=== PATIENT | female | born 1955 | race Caucasian/White ===

== ENCOUNTER 2017-10-09 17:38 | Emergency (ER) | payer MEDICARE, BC ==
[~2017-10-09] VITALS: Ht 170.2 cm; Wt 100.2 kg
[~2017-10-09 17:38] MED LIST: Aspirin PO; BENZTROPINE MESY1 MG PO; CIPRODEX OTIC7.5 ML LEFT EAR; HYDROCODON-ACE1 EA12 PO; ONGLYZA5 MG PO; SPIRONOLACTONE1 GM PO; Z DILTIAZEM PO; Z LABETALOL HCL PO; Z RISPERDAL PO; Z TRAMADOL HCL PO; Z.0.DEPAKOTE250 MG PO; Z.0.PRAVACHOL40 MG PO
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
[2017-10-09] MEDS ORDERED: DILTIAZEM HCL 30 MG TAB PO STA (23:08)
[2017-10-09 23:58] VITALS: BP 157/105
== END 2017-10-10 00:04 | disposition home or self-care (01) ==
LOC: ER 17:38
DX: I10 Essential (primary) hypertension (principal); T46.1X6A Underdosing of calcium-channel blockers, initial encounter; T44.8X6A Underdosing of centrally-acting and adrenergic-neuron-blocking agents, initial encounter; Y92.019 Unspecified place in single-family (private) house as the place of occurrence of the external cause
CPT/HCPCS: 99283

== ENCOUNTER → 2018-09-24 | Outpatient (CLI) | payer MEDICARE, BC ==
--- NOTE | 2018-09-24 17:15 | Diagnostic Imaging Report ---
Radiographs of the right foot - 3 views HISTORY: Pain COMPARISON: None available. FINDINGS: Bones: No acute displaced fracture. Osseous alignment is within normal limits. Joints: Scattered degenerative changes are seen. Postsurgical changes are seen at the distal right first metatarsal. No osseous erosion. Soft tissues: The soft tissues appear unremarkable. IMPRESSION: Scattered degenerative changes are seen. Postsurgical changes are seen at the distal right first metatarsal. No osseous erosion. Signed by: Dr. Eddie Langford M.D. on 09/24/2018 5:12 PM
== END ==
LOC: RAD 16:31
DX: M79.671 Pain in right foot (principal)

== ENCOUNTER → 2019-02-04 | Outpatient (CLI) | payer MEDICARE, BC ==
--- NOTE | 2019-02-04 09:21 | Diagnostic Imaging Report ---
EXAMINATION: PA and lateral views of the chest. COMPARISON: None CLINICAL HISTORY: Predialysis screening DISCUSSION: The lungs are well-inflated. No focal airspace consolidation, pleural effusion, or pneumothorax. Tortuous thoracic aorta with otherwise normal heart size. No pulmonary edema. No acute osseous abnormality. IMPRESSION: No acute cardiopulmonary abnormalities. Signed by: Dr. Bhavin Rios M.D. on 02/04/2019 9:18 AM
== END ==
LOC: RAD 08:46
PROVIDERS: ATTEND Internal Medicine Nephrology
DX: Z49.01 Encounter for fitting and adjustment of extracorporeal dialysis catheter (principal)
CPT/HCPCS: 71046

== ENCOUNTER 2019-06-22 12:35 | Emergency (ER) | payer MEDICARE, BC ==
[~2019-06-22] VITALS: Ht 170.2 cm; Wt 100.2 kg
[2019-06-22] MEDS ORDERED: ALLOPURINOL100 MG PO (12:50)
[2019-06-22] MEDS ORDERED: BUPROPION HCL75 MG PO (12:50)
[2019-06-22] MEDS ORDERED: CALCITRIOL0.25 MCG PO (12:50)
--- NOTE | 2019-06-22 14:34 | NUR ---
Xray not done yet
--- NOTE | 2019-06-22 14:54 | Diagnostic Imaging Report ---
EXAMINATION: CHEST 2 VIEWS INDICATION: ^pulled out dialysis cath ^Y COMPARISON: Chest radiograph 02/04/2019 FINDINGS: PA and lateral views TUBES and LINES: None. LUNGS: Lungs are well inflated. Bilateral interstitial edema. No lobar consolidations. PLEURA: No pleural effusion or pneumothorax. HEART AND MEDIASTINUM: Stable mild enlargement of the cardiac silhouette. Mild calcifications of the aortic arch. BONES AND SOFT TISSUES: No acute osseous lesion. Soft tissues are unremarkable. UPPER ABDOMEN: No free air under the diaphragm. IMPRESSION: No visualized fragments of hemodialysis catheter in the right upper left or hemithorax. No pneumothorax. Bilateral interstitial edema. Signed by: Dr. Danae Arshad M.D. on 06/22/2019 2:51 PM
== END 2019-06-22 15:22 | disposition home or self-care (01) ==
LOC: ER 12:35
DX: T82.898A Other specified complication of vascular prosthetic devices, implants and grafts, initial encounter (principal); I12.0 Hypertensive chronic kidney disease with stage 5 chronic kidney disease or end stage renal disease; E11.22 Type 2 diabetes mellitus with diabetic chronic kidney disease; N18.6 End stage renal disease; Z99.2 Dependence on renal dialysis; Z96.652 Presence of left artificial knee joint
CPT/HCPCS: 71046; 99283

== ENCOUNTER 2020-07-14 12:21 | Inpatient (IN) | payer MEDICARE, BC ==
[~2020-07-14] VITALS: Ht 170.2 cm; Wt 82.1 kg
[~2020-07-14 12:21] MED LIST changes: +ALLOPURINOL100 MG PO; +BUPROPION HCL75 MG PO; +CALCITRIOL0.25 MCG PO
--- OUTSIDE RECORDS SUMMARY | 2020-07-14 12:53 | XMS REPORT | Continuity of Care Document ---
Author Author [facility] t Organization [facility] Address [address] [place] [address] Phone Unavailable Care Team Providers Care Medical Front Desk Coordinator Name Role Phone ZOEY BELLO MD PCP Festus GARCIA Attphys Unavailable Janes JACOBS MARTA Attphys Unavailable ZOEY BELLO Attphys Unavailable Payers Payer Name Policy Type Policy Number Effective Date Expiration Date Malvin Book[employer] [id number] 2015 00:00:[address] 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 Other senior care (current) drug therapy Active Diagnosis 04/04/2020 [facility] Diagnosis Active 2020-04-04 02:47:59 Jesus Michaud Allergies, Adverse Reactions, Alerts Allergy Name Allergy Type Status Severity Reaction(s) Onset Date Inacti ve Date Treating Clinician Comments Source Sulfur Sulfur Active anaphylaxis 2020-03-18 00:00:00 Jesus Michaud Dicyclomine HCl Dicyclomine HCl Active hives 2020-03-18 00:00:00 Jesus Michaud Penicillins DA Active U 2018-11-19 00:00:00 [facility] Sulfa (Sulfonamide Antibiotics) DA Active U 2018-11-19 00 :00:00 [facility] doxycycline DA Active U 2018-11-19 00:00:00 [facility] Penicillins DA Active U 2015-02-11 00:00:00 [facility] Sulfa (Sulfonamide Antibiotics) DA Active U 2015-02-11 00 :00:00 [facility] doxycycline DA Active U 2015-02-11 00:00:00 [facility] Doxycycline Allergy to Substance Active Moderate RASH 2015-02-02 00:00: 00 [facility] Penicillin Allergy to Substance Active Mild ITCHING 2010-04-06 00:00:00 [facility] Sulfa (Sulfonamide Antibiotics) Allergy to Substance Active Mild ITCHING 2010-04-06 00:00:00 [facility] Chlorpromazine Allergy to Substance Active Mild SAGGING OF JAW 2010-04-06 00:00:00 [facility] Medications Ordered Medication Name Filled Medication Name Start Date Stop Da te Current Medication? Ordering Clinician Indication Dosage Frequency Signature (SIG) Comments Components Source Risperidone 2020-04-04 02:47:59 Yes Tory Navarro 1/2 tablet [facility] Colace 2020-04-04 02:47:59 Yes Tory Navarro 1 capsule as needed [facility] Diltiazem HCl ER 2020-04-04 02:47:59 Yes Tory Poolean 1 tablet at the same time each day [facility] Allopurinol 2020-04-04 02:47:59 Yes Tory Poolean 1 tablet [facility] Humalog 2020-04-04 02:47:59 Yes Tory Navarro n ot defined [facility] Aspirin 2020-04-04 02:47:59 Yes Tory Poolean 1 tablet [facility] Pravastatin Sodium 2020-04-04 02:47:59 Yes Tory Poolean 1 tablet [facility] Acetaminophen 2020-04-04 02:47:59 Yes Tory Poolean 1 tablet as needed [facility] Labetalol HCl 2020-04-04 02:47:59 Yes Tory Palkman 1 tablet [facility] Depakote 2020-04-04 02:47:53 Yes Tory Navarro 1 tablet q am & 2 tablets q hs [facility] Onglyza 2020-04-04 02:47:53 Yes Tory Navarro n ot defined [facility] Benztropine Mesylate 2020-04-04 02:47:53 Yes Tory darden 1 tablet at bedtime [facility] Calcitriol 2020-04-04 02:47:53 Yes Torycarole Navarro 1 capsule [facility] BuPROPion HCl 2020-04-04 02:47:53 Yes Torycarole Poolean 1 tablet [facility] Aspirin 325 Mg Tab Aspirin 325 Mg Tab 2016-03-16 00:00:00 Yes Adithya Zhang Pa 325 Twice A Day [facility] Allopurinol 100 Mg Tablet Allopurinol 100 Mg Tablet Yes 100 Daily [facility] Benztropine Mesylate 1 Mg Tablet Benztropine Mesylate 1 Mg Tablet Yes Bedtime [facility] Bupropion Hcl 75 Mg Tablet Bupropion Hcl 75 Mg Tablet Yes 75 Daily [facility] Calcitriol 0.25 Mcg Capsule Calcitriol 0.25 Mcg Capsule Yes 1 Daily [facility] Diltiazem Hcl (Diltiazem 24HR Er) 240 Mg Tab.sr.24h Di ltiazem Hcl (Diltiazem 24HR Er) 240 Mg Tab.sr.24h Yes 1 Daily [facility] Divalproex Sodium (Depakote) 250 Mg Tablet. Divalpro ex Sodium (Depakote) 250 Mg Tablet. Yes 2 Daily [facility] Labetalol Hcl 100 Mg Tablet Labetalol Hcl 100 Mg Tablet Yes [address] [facility] Pravastatin Sodium (Pravachol) 40 Mg Tablet Pravastati n Sodium (Pravachol) 40 Mg Tablet Yes 1 Bedtime [facility] Risperidone (Risperdal) 3 Mg Tablet Risperidone (Risperdal) 3 Mg Tabl et Yes 1 Bedtime [facility] Saxagliptin Hcl (Onglyza) 5 Mg Tablet, Oral Saxaglip tin Hcl (Onglyza) 5 Mg Tablet, Oral 2019-06-22 00:00:[address] [facility] Ciprofloxacin Hcl (Ciprodex Otic Suspension*) 7.5 Ml D rpette, 4 Drop Left Ear Ciprofloxacin Hcl (Ciprodex Otic Suspension*) 7.5 Ml Drpette, 4 Drop Left Ear 2016-03-10 00:00:00 No 4 Tw[address] A Day [facility] Hydrocodone Bit/Acetaminophen (Hydrocodo n-Acetaminoph 7.5-325) 1 Each Tablet, Mg Oral Hydrocodone Bit/Acetaminophen (Hydrocodo n-Acetaminoph 7.5-325) 1 Each Tablet, Mg Oral 2016-03-10 00:00:00 No As Need ed for Pain [facility] Spironolactone, Micronized (Spironolactone) 1 Gm Powde r, 25 Mg Oral Spironolactone, Micronized (Spironolactone) 1 Gm Powder, 25 Mg Oral 2016-03-10 00:00:[address] No [address] [facility] Vital Signs Vital Name Observation Time Observation Value Comments Source Weight 2020-03-18 21:45:00 [facility] Weight 2020-02-18 21:45:00 [facility] Weight 2020-01-21 21:15:00 [facility] Weight 2019-12-26 22:00:00 [facility] Weight 2019-10-27 15:45:00 [facility] Height 2019-10-27 15:45:00 [facility] Heart Rate 2019-10-27 15:45:00 [facility] Diastolic (mm Hg) 2019-10-27 15:45:00 [facility] Systolic [facility] Hg) 2019-10-27 15:45:00 Lei rial Jaswant Procedures Procedure Date / Time Performed Performing Clinician [facility] e X-ray of chest, two views 2019-06-22 00:00:00 ARISTEO GARCIA [facility] X-ray of chest, two views 2019-02-04 00:00:[address] [facility] Encounters Start Date/Time End Date/Time En[facility] Ad[facility] ID Source 2019-06-23 08:32:51 Outpatient MHSE ZORAIDA [id number] [facility] 2020-03-18 16:45:00 2020-03-18 16:45:00 Outpatient SHUN MELTON MD [place] [id number] [facility] 2020-03-16 17:48:00 2020-03-16 17:48:00 Outpatient Shun Melton MD [place] [id number] [employer] 2020-03-16 17:46:00 2020-03-16 17:46:00 Outpatient Shun Melton MD PA Shun Melton MD PA [id number] [employer] 2020-03-16 17:43:00 2020-03-16 17:43:00 Outpatient Shun Melton MD PA Shun Melton MD PA [id number] [employer] 2020-03-16 14:44:00 2020-03-16 14:44:00 Outpatient Shun Melton MD PA [id number] [employer] 2020-02-18 16:45:00 2020-02-18 16:45:00 Outpatient SHUN MELTON MD PA [id number] [employer] 2020-01-21 16:15:00 2020-01-21 16:15:00 Outpatient SHUN MELTON MD PA [id number] [employer] 2019-12-26 17:00:00 2019-12-26 17:00:00 Outpatient SHUN MELTON MD PA [id number] [employer] 2019-11-26 10:45:00 2019-11-26 10:45:00 Outpatient SHUN MELTON MD [place] [id number] [employer] 2019-11-05 10:30:00 2019-11-05 10:30:00 Outpatient SHUN MELTON MD PA [id number] [employer] 2019-11-03 10:50:00 2019-11-03 10:50:00 Outpatient Shun Melton MD PA [id number] [employer] 2019-10-31 10:21:00 2019-10-31 10:21:00 Outpatient Shun Melton MD PA [id number] [employer] 2019-10-29 11:44:00 2019-10-29 11:44:00 Outpatient Shun WATTERS [id number] [employer] 2019-10-27 10:45:00 2019-10-27 10:45:00 Outpatient SHUN WATTERS [id number] [employer] 2019-09-10 08:13:00 2019-09-10 08:13:00 Outpatient MHSE ZORAIDA [id number] [facility] 2019-06-22 12:35:00 2019-06-22 15:22:00 Departed Emergency Room 1 ARISTEO GARCIA [facility] [id number] [facility] 2019-05-21 13:23:00 2019-05-21 13:23:00 Outpatient MHSE ZORAIDA [id number] [facility] 2019-02-04 08:46:00 2019-02-04 08:46:00 Registered Clinic 3 MARTA JACOBS [facility] [id number] [facility] 2018-09-24 16:31:00 2018-09-24 16:31:00 Registered Clinic 3 ZOEY BELLO [facility] [id number] [facility] 2017-10-09 17:38:00 2017-10-10 00:04:00 Departed Emergency Room [facility] [id number] [facility] 2017-06-23 16:11:00 2017-06-23 22:31:00 Departed Emergency Room ER ARISTEO GARCIA [facility] [id number] [facility] 2017-02-23 12:47:00 2017-02-23 12:47:00 Registered Clinic [facility] [id number] [facility] Results Test Description Test Time Test Comments Results Result Comments Source - NM MYOCRD SPECT R/S MULT 2019-09-30 08:07:00 FAX: Zoey Burch MD [phone] [place]: B St: [facility] FAX: Harjit George MD [phone] Name: GATO BEVERLY [facility] : 1955 Age/S: 63/F [address] [facility] Unit #: [id number] Loc: V.30[address] [place] [address] Phys: Harjit Michaud MD Acct: [id number] Dis Date: Status: ADM IN PHONE #: [phone] Exam Date: 09/25/2019 1230 FAX #: [phone] Reason: CAD,angina EXAMS: CPT CODE: [id number] NM MYOCRD SPECT R/S MULT 13650 HISTORY: CAD and angina. COMPARISON: None available. Location: [facility]. Stress test: 10.9 mCi of technetium 99m sestamibi for the resting portion and 30.7 mCi for the stress portion. 0.4 mg of Lexiscan administered. The left ventricular cavity is normal. The wall motion was normal. Ejection fraction is 73%. No reversible or fixed defects visible. IMPRESSION: No reversible or fixed defects. Ejection fraction of 73 %. at 0807 Reported and signed by: Hardik Knutson M.D. CC: Zoey Bello MD; Shola Michaud M.D. Technologist: Jason Ledezma RT(R)(N) Trnscrd Date/Time/By: 09/30/2019 (0807) : By: [email or web address] Orig Print D/T: S: 09/30/2019 (0810) PAGE 1 Signed Report RENAL FUNCTION PANEL 2019-09-30 07:54:00 Test Item SODIUM (test code = NA) 146 mmol/L 136-145 H POTASSIUM (test code = K) 4.8 mmol/L 3.5-5.1 N CHLORIDE (test code = CL) 114.0 mmol/L 98-107 H CARBON DIOXIDE (test code = CO2) 26.0 mmol/L 21-32 N ANION GAP (test code = GAP) 10.8 10-20 N GLUCOSE (test code = GLU) 123 mg/dL 74-106 H BLOOD UREA NITROGEN (test code = BUN) 92 mg/dL 7-18 H CREATININE (test code = CREAT) 4.00 mg/dL 0.55-1.02 H Note change in reference range due to change in reagent. ALBUMIN (test code = ALB) 3.0 g/dL 3.4-5.0 L CALCIUM (test code = CA) 9.6 mg/dL 8.5-10.1 N PHOSPHORUS (test code = PHOS) 5.3 mg/dL 2.5-4.9 H RENAL FUNCTION [id number] 07:49:00* Test Item Value Reference Range Interpretation Comments SODIUM (test code = NA) 146 mmol/L 136-145 H POTASSIUM (test code = K) 4.8 mmol/L 3.5-5.1 N CHLORIDE (test code = CL) 114.0 mmol/L 98-107 H CARBON DIOXIDE (test code = CO2) mmol/L 21-32 ANION GAP (test code = GAP) 10-20 GLUCOSE (test code = GLU) mg/dL 74-106 BLOOD UREA NITROGEN (test code = BUN) mg/dL 7-18 CREATININE (test code = CREAT) mg/dL 0.55-1.02 ALBUMIN (test code = ALB) g/dL 3.4-5.0 CALCIUM (test code = CA) mg/dL 8.5-10.1 PHOSPHORUS (test code = PHOS) mg/dL 2.5-4.9 CBC W/O [id number] 07:34:00* Test Item Value Reference Range Interpretation Comments WHITE BLOOD CELL (test code = WBC) K/mm3 4.5-12.5 RED BLOOD CELL (test code = RBC) mill/mm3 3.7-5.2 HEMOGLOBIN (test code = HGB) 11.6 gram/dL 11.5-15.5 N HEMATOCRIT (test code = HCT) 38.5 % 36.0-46.0 N MEAN CELL VOLUME (test code = MCV) fL 80-98 MEAN CELL HGB (test code = MCH) picogram 27.0-33.0 MEAN CELL HGB CONCETRATION (test code = MCHC) gram/dL 33.0-36. 0 RED CELL DISTRIBUTION WIDTH (test code = RDW) % 11.6-16. 2 PLATELET COUNT (test code = PLT) K/mm3 150-450 MEAN PLATELET VOLUME (test code = MPV) fL 6.7-11.0 CBC W/O [id number] 07:34:00* Test Item Value Reference Range Interpretation Comments WHITE BLOOD CELL (test code = WBC) 11.7 K/mm3 4.5-12.5 N RED BLOOD CELL (test code = RBC) 4.04 mill/mm3 3.7-5.2 N HEMOGLOBIN (test code = HGB) 11.6 gram/dL 11.5-15.5 N HEMATOCRIT (test code = HCT) 38.5 % 36.0-46.0 N MEAN CELL VOLUME (test code = MCV) 95.3 fL 80-98 N MEAN CELL HGB (test code = MCH) 28.7 picogram 27.0-33.0 N MEAN CELL HGB CONCETRATION (test code = MCHC) 30.1 gram/dL 33.0-36. 0 L RED CELL DISTRIBUTION WIDTH (test code = RDW) 15.5 % 11.6-16. 2 N PLATELET COUNT (test code = PLT) 194 K/mm3 150-450 N MEAN PLATELET VOLUME (test code = MPV) 11.0 fL 6.7-11.0 N [id number] 17:11:00* Test Item Value Reference Range Interpretation Comments CKMB (test code = CKMBT) < 1.0 ng/mL 0-6.0 N COMMENTS TO PLATE FORMER: RIGHT ARM [id number] 17:11:00* Test Item Value Reference Range Interpretation Comments TROPONIN-I (test code = TROPI) <0.015 ng/mL 0-0.045 N COMMENTS TO PLATE FORMER: RIGHT ARM ALERTBASIC METABOLIC [id number] 08:22:00* Test Item Value Reference Range Interpretation Comments SODIUM (test code = NA) 142 mmol/L 136-145 N POTASSIUM (test code = K) 5.0 mmol/L 3.5-5.1 N CHLORIDE (test code = CL) 110.0 mmol/L 98-107 H CARBON DIOXIDE (test code = CO2) 25.0 mmol/L 21-32 N ANION GAP (test code = GAP) 12.0 10-20 N GLUCOSE (test code = GLU) 136 mg/dL 74-106 H BLOOD UREA NITROGEN (test code = BUN) 66 mg/dL 7-18 H GLOMERULAR FILTRATION RATE (test code = GFR) 10 mL/min >=60 Estimated GFR by using Modified MDRD formula.Chronic kidney disease is defined as either kidney damageor GFR <60 mL/min/1.73 m2 for >3 months. CREATININE (test code = CREAT) 4.30 mg/dL 0.55-1.02 H Note change in reference range due to change in reagent. BUN/CREATININE RATIO (test code = BUN/CREA) 15.3 10-20 N CALCIUM (test code = CA) 10.0 mg/dL 8.5-10.1 N BASIC METABOLIC [id number] 08:14:00* Test Item Value Reference Range Interpretation Comments SODIUM (test code = NA) 142 mmol/L 136-145 N POTASSIUM (test code = K) 5.0 mmol/L 3.5-5.1 N CHLORIDE (test code = CL) 110.0 mmol/L 98-107 H CARBON DIOXIDE (test code = CO2) mmol/L 21-32 ANION GAP (test code = GAP) 10-20 GLUCOSE (test code = GLU) mg/dL 74-106 BLOOD UREA NITROGEN (test code = BUN) mg/dL 7-18 GLOMERULAR FILTRATION RATE (test code = GFR) mL/min >=60 CREATININE (test code = CREAT) mg/dL 0.55-1.02 BUN/CREATININE RATIO (test code = BUN/CREA) 10-20 CALCIUM (test code = CA) mg/dL 8.5-10.1 CBC W/O [id number] 07:52:00* Test Item Value Reference Range Interpretation Comments WHITE BLOOD CELL (test code = WBC) 10.8 K/mm3 4.5-12.5 N RED BLOOD CELL (test code = RBC) 3.85 mill/mm3 3.7-5.2 N HEMOGLOBIN (test code = HGB) 11.3 gram/dL 11.5-15.5 L HEMATOCRIT (test code = HCT) 37.3 % 36.0-46.0 N MEAN CELL VOLUME (test code = MCV) 96.9 fL 80-98 N MEAN CELL HGB (test code = MCH) 29.4 picogram 27.0-33.0 N MEAN CELL HGB CONCETRATION (test code = MCHC) 30.3 gram/dL 33.0-36. 0 L RED CELL DISTRIBUTION WIDTH (test code = RDW) 15.9 % 11.6-16. 2 N PLATELET COUNT (test code = PLT) 185 K/mm3 150-450 N MEAN PLATELET VOLUME (test code = MPV) 11.1 fL 6.7-11.0 H BASIC METABOLIC [id number] 06:12:00* Test Item Value Reference Range Interpretation Comments SODIUM (test code = NA) 143 mmol/L 136-145 N POTASSIUM (test code = K) 4.6 mmol/L 3.5-5.1 N CHLORIDE (test code = CL) 110.0 mmol/L 98-107 H CARBON DIOXIDE (test code = CO2) 27.0 mmol/L 21-32 N ANION GAP (test code = GAP) 10.6 10-20 N GLUCOSE (test code = GLU) 152 mg/dL 74-106 H BLOOD UREA NITROGEN (test code = BUN) 51 mg/dL 7-18 H GLOMERULAR FILTRATION RATE (test code = GFR) 11 mL/min >=60 Estimated GFR by using Modified MDRD formula.Chronic kidney disease is defined as either kidney damageor GFR <60 mL/min/1.73 m2 for >3 months. CREATININE (test code = CREAT) 4.00 mg/dL 0.55-1.02 H Note change in reference range due to change in reagent. BUN/CREATININE RATIO (test code = BUN/CREA) 12.7 10-20 N CALCIUM (test code = CA) 9.6 mg/dL 8.5-10.1 N CBC W/AUTO [id number] 05:19:00* Test Item Value Reference Range Interpretation Comments WHITE BLOOD CELL (test code = WBC) 11.9 K/mm3 4.5-12.5 N RED BLOOD CELL (test code = RBC) 4.03 mill/mm3 3.7-5.2 N HEMOGLOBIN (test code = HGB) 11.9 gram/dL 11.5-15.5 N HEMATOCRIT (test code = HCT) 39.2 % 36.0-46.0 N MEAN CELL VOLUME (test code = MCV) 97.3 fL 80-98 N MEAN CELL HGB (test code = MCH) 29.5 picogram 27.0-33.0 N MEAN CELL HGB CONCETRATION (test code = MCHC) 30.4 gram/dL 33.0-36. 0 L RED CELL DISTRIBUTION WIDTH (test code = RDW) 15.8 % 11.6-16. 2 N RED CELL DISTRIBUTION WIDTH SD (test code = RDW-SD) 55.2 fL 37 .0-51.0 H PLATELET COUNT (test code = PLT) 204 K/mm3 150-450 N MEAN PLATELET VOLUME (test code = MPV) 11.5 fL 6.7-11.0 H NEUTROPHIL % (test code = NT%) 71.8 % 39.0-69.0 H IMMATURE GRANULOCYTE % (test code = IG%) 0.6 % 0.0-5.0 N LYMPHOCYTE % (test code = LY%) 15.0 % 25.0-55.0 L MONOCYTE % (test code = MO%) 9.6 % 0.0-10.0 N EOSINOPHIL % (test code = EO%) 2.7 % 0.0-5.0 N BASOPHIL % (test code = BA%) 0.3 % 0.0-1.0 N NUCLEATED RBC % (test code = NRBC%) 0.0 % 0-0 N NEUTROPHIL # (test code = NT#) 8.55 K/mm3 1.8-7.7 H IMMATURE GRANULOCYTE # (test code = IG#) 0.07 x10 3/uL 0-0.03 H LYMPHOCYTE # (test code = LY#) 1.79 K/mm3 1.0-5.0 N MONOCYTE # (test code = MO#) 1.14 K/mm3 0-0.8 H EOSINOPHIL # (test code = EO#) 0.32 K/mm3 0.0-0.5 N BASOPHIL # (test code = BA#) 0.04 K/mm3 0.0-0.2 N NUCLEATED RBC # (test code = NRBC#) 0.00 K/mm3 0.0-0.1 N MANUAL DIFF REQUIRED (test code = MDIFF) NO CBC W/AUTO [id number] 05:17:00* Test Item Value Reference Range Interpretation Comments WHITE BLOOD CELL (test code = WBC) K/mm3 4.5-12.5 RED BLOOD CELL (test code = RBC) mill/mm3 3.7-5.2 HEMOGLOBIN (test code = HGB) 11.9 gram/dL 11.5-15.5 N HEMATOCRIT (test code = HCT) 39.2 % 36.0-46.0 N MEAN CELL VOLUME (test code = MCV) fL 80-98 MEAN CELL HGB (test code = MCH) picogram 27.0-33.0 MEAN CELL HGB CONCETRATION (test code = MCHC) gram/dL 33.0-36. 0 RED CELL DISTRIBUTION WIDTH (test code = RDW) % 11.6-16. 2 RED CELL DISTRIBUTION WIDTH SD (test code = RDW-SD) fL 37 .0-51.0 PLATELET COUNT (test code = PLT) K/mm3 150-450 MEAN PLATELET VOLUME (test code = MPV) fL 6.7-11.0 NEUTROPHIL % (test code = NT%) % 39.0-69.0 IMMATURE GRANULOCYTE % (test code = IG%) % 0.0-5.0 LYMPHOCYTE % (test code = LY%) % 25.0-55.0 MONOCYTE % (test code = MO%) % 0.0-10.0 EOSINOPHIL % (test code = EO%) % 0.0-5.0 BASOPHIL % (test code = BA%) % 0.0-1.0 NEUTROPHIL # (test code = NT#) K/mm3 1.8-7.7 LYMPHOCYTE # (test code = LY#) K/mm3 1.0-5.0 MONOCYTE # (test code = MO#) K/mm3 0-0.8 EOSINOPHIL # (test code = EO#) K/mm3 0.0-0.5 BASOPHIL # (test code = BA#) K/mm3 0.0-0.2 - US ABDOMEN [id number] 18:00:00 Name: GATO BVEERLY [facility] : 1955 Age/S: 63 / F [address] Unit #: [id number] Loc: [place] [address] Phys: Harjit Michaud MD Acct: [id number] Dis Date: Status: ADM IN PHONE #: [phone] Exam Date: 09/25/2019 1735 FAX #: [phone] Reason: abdominal pain,indigestion EXAMS: CPT CODE: [id number] US ABDOMEN COMPLETE 69909 REASON FOR EXAM: abdominal pain,indigestion EXAM ORDER DATE: 09/25/2019 12:45 PM Ordering: Harjit Michaud MD Attending:Zoey Belol MD Location:[facility] PROCEDURE: - US ABDOMEN COMPLETE FINDINGS: The liver is unremarkable. There is no evidence of focal mass identified. The pancreas is within normal limits. The right kidney measures 11.1 x 5 cm. The left kidney measures 9.2 x 5 cm. There is no evidence of hydronephrosis. There is no evidence of nephrolithiasis. There is no evidence of renal mass. The spleen measures 8.4 cm. The gallbladder is partially contracted with small gallstones. No evidence of gallbladder wall thickening or pericholecystic fluid. The common bile duct measures 0.3 cm. There is no evidence of ascites. The aorta and IVC are within normal limits. The portal vein is patent with hepatopetal flow IMPRESSION: 1.7 cm hepatic cyst in the left lobe of the liver. Echogenic kidneys with small (1.5 cm) right renal cysts consi stent with chronic renal disease. Cholelithiasis Electronica lly Signed by Jakub Lynch on 09/25/2019 at 1800 Reporte d and signed by: Terell Lynch M.D. CC: Zoey Bello MD; Harjit carrillo M.D. Technologist: Mago Larsen RDMS Trnscb Date/Time: 09/25/2019 (1800) [email or web address] Orig Print D/T: S: 09/25/2019 (1803) Probe: PAGE 1 Signed Report COMPREHENSIVE METABOLIC [id number] 10:12:00* Test Item Value Reference Range Interpretation Comments SODIUM (test code = NA) 144 mmol/L 136-145 N POTASSIUM (test code = K) 4.5 mmol/L 3.5-5.1 N CHLORIDE (test code = CL) 108.0 mmol/L 98-107 H CARBON DIOXIDE (test code = CO2) 31.0 mmol/L 21-32 N ANION GAP (test code = GAP) 9.5 10-20 L GLUCOSE (test code = GLU) 177 mg/dL 74-106 H BLOOD UREA NITROGEN (test code = BUN) 45 mg/dL 7-18 H GLOMERULAR FILTRATION RATE (test code = GFR) 10 mL/min >=60 Estimated GFR by using Modified MDRD formula.Chronic kidney disease is defined as either kidney damageor GFR <60 mL/min/1.73 m2 for >3 months. CREATININE (test code = CREAT) 4.60 mg/dL 0.55-1.02 H Note change in reference range due to change in reagent. BUN/CREATININE RATIO (test code = BUN/CREA) 9.8 10-20 L TOTAL PROTEIN (test code = PROT) 5.7 gram/dL 6.4-8.2 L ALBUMIN (test code = ALB) 2.7 g/dL 3.4-5.0 L GLOBULIN (test code = GLOB) 3.0 gram/dL 2.7-4.2 N ALBUMIN/GLOBULIN RATIO (test code = A/G) 0.9 0.75-1.50 N CALCIUM (test code = CA) 10.3 mg/dL 8.5-10.1 H BILIRUBIN TOTAL (test code = BILT) 0.30 mg/dL 0.0-1.0 N SGOT/AST (test code = AST) 11 IUnit/L 15-37 L SGPT/ALT (test code = ALT) 16 IUnit/L 12-78 N ALKALINE PHOSPHATASE TOTAL (test code = ALKP) 67 IUnit/L 45-117 N Note change in reference range due to change in reagent. CALCIUM [id number] 10:12:00* Test Item Value Reference Range Interpretation Comments CALCIUM IONIZED (test code = ALBAN) 1.48 mmol/L 1.12-1.32 H PARATHYROID HORMONE [id number] 10:12:00* Test Item Value Reference Range Interpretation Comments PARATHYROID HORMONE INTACT (test code = PARAI) 38.80 pgram/mL 8.4-8 8 N VITAMIN D [id number] 10:12:00* Test Item Value Reference Range Interpretation Comments VITAMIN D 25-HYDROXY (test code = VITD25) 56.2 ng/mL 30.0-100.0 Vitamin D deficiency has been defined by the [facility] and an Endocrine Society practice guideline as alevel of serum 25-OH vitamin D less than 20 ng/mL (1,2).The Endocrine Society went on to further define vitamin Dinsufficiency as a level between 21 and 29 ng/mL (2).1. IOM ([facility]). 2010. Dietary reference intakes for calcium and D. [place]: The National Academies Press.2. Bridget MF, Carlita NC, Olivier SANDERSON, et al. Evaluation, treatment, and prevention of vitamin D deficiency: an Endocrine Society clinical practice guideline. JCEM. 2010; 96(7):1911-30.Performed At: 21 [address] [id number] Barroso MD Ph:[phone] performed at: [address] [address] AB HEPATITIS B [id number] 10:12:00* Test Item Value Reference Range Interpretation Comments AB HEPATITIS B SURFACE (test code = HBSAB) Non Reactive () Non Reactive: Inconsistent with immunity, less than 10 mIU/mL Reactive: Consistent with immunity, greater than 9.9 mIU/mLPerformed At: [address] [id number] Barroso MD Ph:[phone] HEPATITIS B CORE ANTIBODY,[id number] 10:12:00* Test Item Value Reference Range Interpretation Comments HEPATITIS B CORE ANTIBODY,TOT (test code = HBCAB) Negative Nega tive Performed At: [address] [id number] Barroso MD Ph:[phone] COMPREHENSIVE METABOLIC [id number] 12:25:00* Test Item Value Reference Range Interpretation Comments SODIUM (test code = NA) 144 mmol/L 136-145 N POTASSIUM (test code = K) 4.5 mmol/L 3.5-5.1 N CHLORIDE (test code = CL) 108.0 mmol/L 98-107 H CARBON DIOXIDE (test code = CO2) 31.0 mmol/L 21-32 N ANION GAP (test code = GAP) 9.5 10-20 L GLUCOSE (test code = GLU) 177 mg/dL 74-106 H BLOOD UREA NITROGEN (test code = BUN) 45 mg/dL 7-18 H GLOMERULAR FILTRATION RATE (test code = GFR) 10 mL/min >=60 Estimated GFR by using Modified MDRD formula.Chronic kidney disease is defined as either kidney damageor GFR <60 mL/min/1.73 m2 for >3 months. CREATININE (test code = CREAT) 4.60 mg/dL 0.55-1.02 H Note change in reference range due to change in reagent. BUN/CREATININE RATIO (test code = BUN/CREA) 9.8 10-20 L TOTAL PROTEIN (test code = PROT) 5.7 gram/dL 6.4-8.2 L ALBUMIN (test code = ALB) 2.7 g/dL 3.4-5.0 L GLOBULIN (test code = GLOB) 3.0 gram/dL 2.7-4.2 N ALBUMIN/GLOBULIN RATIO (test code = A/G) 0.9 0.75-1.50 N CALCIUM (test code = CA) 10.3 mg/dL 8.5-10.1 H BILIRUBIN TOTAL (test code = BILT) 0.30 mg/dL 0.0-1.0 N SGOT/AST (test code = AST) 11 IUnit/L 15-37 L SGPT/ALT (test code = ALT) 16 IUnit/L 12-78 N ALKALINE PHOSPHATASE TOTAL (test code = ALKP) 67 IUnit/L 45-117 N Note change in reference range due to change in reagent. CALCIUM [id number] 12:25:00* Test Item Value Reference Range Interpretation Comments CALCIUM IONIZED (test code = ALBAN) 1.48 mmol/L 1.12-1.32 H PARATHYROID HORMONE [id number] 12:25:00* Test Item Value Reference Range Interpretation Comments PARATHYROID HORMONE INTACT (test code = PARAI) 38.80 pgram/mL 8.4-8 8 N VITAMIN D [id number] 12:25:00* Test Item Value Reference Range Interpretation Comments VITAMIN D 25-HYDROXY (test code = VITD25) ng/mL 30-100 COMPREHENSIVE METABOLIC [id number] 12:16:00* Test Item Value Reference Range Interpretation Comments SODIUM (test code = NA) 144 mmol/L 136-145 N POTASSIUM (test code = K) 4.5 mmol/L 3.5-5.1 N CHLORIDE (test code = CL) 108.0 mmol/L 98-107 H CARBON DIOXIDE (test code = CO2) 31.0 mmol/L 21-32 N ANION GAP (test code = GAP) 9.5 10-20 L GLUCOSE (test code = GLU) 177 mg/dL 74-106 H BLOOD UREA NITROGEN (test code = BUN) 45 mg/dL 7-18 H GLOMERULAR FILTRATION RATE (test code = GFR) 10 mL/min >=60 Estimated GFR by using Modified MDRD formula.Chronic kidney disease is defined as either kidney damageor GFR <60 mL/min/1.73 m2 for >3 months. CREATININE (test code = CREAT) 4.60 mg/dL 0.55-1.02 H Note change in reference range due to change in reagent. BUN/CREATININE RATIO (test code = BUN/CREA) 9.8 10-20 L TOTAL PROTEIN (test code = PROT) 5.7 gram/dL 6.4-8.2 L ALBUMIN (test code = ALB) 2.7 g/dL 3.4-5.0 L GLOBULIN (test code = GLOB) 3.0 gram/dL 2.7-4.2 N ALBUMIN/GLOBULIN RATIO (test code = A/G) 0.9 0.75-1.50 N CALCIUM (test code = CA) 10.3 mg/dL 8.5-10.1 H BILIRUBIN TOTAL (test code = BILT) 0.30 mg/dL 0.0-1.0 N SGOT/AST (test code = AST) 11 IUnit/L 15-37 L SGPT/ALT (test code = ALT) 16 IUnit/L 12-78 N ALKALINE PHOSPHATASE TOTAL (test code = ALKP) 67 IUnit/L 45-117 N Note change in reference range due to change in reagent. CALCIUM [id number] 12:16:00* Test Item Value Reference Range Interpretation Comments CALCIUM IONIZED (test code = ALBAN) 1.48 mmol/L 1.12-1.32 H PARATHYROID HORMONE [id number] 12:16:00* Test Item Value Reference Range Interpretation Comments PARATHYROID HORMONE INTACT (test code = PARAI) pgram/mL 8.4-88 VITAMIN D [id number] 12:16:00* Test Item Value Reference Range Interpretation Comments VITAMIN D 25-HYDROXY (test code = VITD25) ng/mL 30-100 COMPREHENSIVE METABOLIC [id number] 12:13:00* Test Item Value Reference Range Interpretation Comments SODIUM (test code = NA) 144 mmol/L 136-145 N POTASSIUM (test code = K) 4.5 mmol/L 3.5-5.1 N CHLORIDE (test code = CL) 108.0 mmol/L 98-107 H CARBON DIOXIDE (test code = CO2) 31.0 mmol/L 21-32 N ANION GAP (test code = GAP) 9.5 10-20 L GLUCOSE (test code = GLU) 177 mg/dL 74-106 H BLOOD UREA NITROGEN (test code = BUN) 45 mg/dL 7-18 H GLOMERULAR FILTRATION RATE (test code = GFR) 10 mL/min >=60 Estimated GFR by using Modified MDRD formula.Chronic kidney disease is defined as either kidney damageor GFR <60 mL/min/1.73 m2 for >3 months. CREATININE (test code = CREAT) 4.60 mg/dL 0.55-1.02 H Note change in reference range due to change in reagent. BUN/CREATININE RATIO (test code = BUN/CREA) 9.8 10-20 L TOTAL PROTEIN (test code = PROT) 5.7 gram/dL 6.4-8.2 L ALBUMIN (test code = ALB) 2.7 g/dL 3.4-5.0 L GLOBULIN (test code = GLOB) 3.0 gram/dL 2.7-4.2 N ALBUMIN/GLOBULIN RATIO (test code = A/G) 0.9 0.75-1.50 N CALCIUM (test code = CA) 10.3 mg/dL 8.5-10.1 H BILIRUBIN TOTAL (test code = BILT) 0.30 mg/dL 0.0-1.0 N SGOT/AST (test code = AST) 11 IUnit/L 15-37 L SGPT/ALT (test code = ALT) 16 IUnit/L 12-78 N ALKALINE PHOSPHATASE TOTAL (test code = ALKP) 67 IUnit/L 45-117 N Note change in reference range due to change in reagent. CALCIUM [id number] 12:13:00* Test Item Value Reference Range Interpretation Comments CALCIUM IONIZED (test code = ALBAN) mmol/L 1.12-1.32 PARATHYROID HORMONE [id number] 12:13:00* Test Item Value Reference Range Interpretation Comments PARATHYROID HORMONE INTACT (test code = PARAI) pgram/mL 8.4-88 VITAMIN D [id number] 12:13:00* Test Item Value Reference Range Interpretation Comments VITAMIN D 25-HYDROXY (test code = VITD25) ng/mL 30-100 COMPREHENSIVE METABOLIC [id number] 12:10:00* Test Item Value Reference Range Interpretation Comments SODIUM (test code = NA) 144 mmol/L 136-145 N POTASSIUM (test code = K) 4.5 mmol/L 3.5-5.1 N CHLORIDE (test code = CL) 108.0 mmol/L 98-107 H CARBON DIOXIDE (test code = CO2) mmol/L 21-32 ANION GAP (test code = GAP) 10-20 GLUCOSE (test code = GLU) mg/dL 74-106 BLOOD UREA NITROGEN (test code = BUN) mg/dL 7-18 GLOMERULAR FILTRATION RATE (test code = GFR) mL/min >=60 CREATININE (test code = CREAT) mg/dL 0.55-1.02 BUN/CREATININE RATIO (test code = BUN/CREA) 10-20 TOTAL PROTEIN (test code = PROT) gram/dL 6.4-8.2 ALBUMIN (test code = ALB) g/dL 3.4-5.0 GLOBULIN (test code = GLOB) gram/dL 2.7-4.2 ALBUMIN/GLOBULIN RATIO (test code = A/G) 0.75-1.50 CALCIUM (test code = CA) mg/dL 8.5-10.1 BILIRUBIN TOTAL (test code = BILT) mg/dL 0.0-1.0 SGOT/AST (test code = AST) IUnit/L 15-37 SGPT/ALT (test code = ALT) IUnit/L 12-78 ALKALINE PHOSPHATASE TOTAL (test code = ALKP) IUnit/L 45-117 CALCIUM [id number] 12:10:00* Test Item Value Reference Range Interpretation Comments CALCIUM IONIZED (test code = ALBAN) mmol/L 1.12-1.32 PARATHYROID HORMONE [id number] 12:10:00* Test Item Value Reference Range Interpretation Comments PARATHYROID HORMONE INTACT (test code = PARAI) pgram/mL 8.4-88 VITAMIN D [id number] 12:10:00* Test Item Value Reference Range Interpretation Comments VITAMIN D 25-HYDROXY (test code = VITD25) ng/mL 30-100 [id number] 23:51:00* Test Item Value Reference Range Interpretation Comments TROPONIN-I (test code = TROPI) 0.019 ng/mL 0-0.045 N COMMENTS TO PLATE FORMER: COLLECT 3 HOURS AFTER PREVIOUS [id number] 21:12:00* Test Item Value Reference Range Interpretation Comments TROPONIN-I (test code = TROPI) 0.018 ng/mL 0-0.045 N COMMENTS TO PLATE FORMER: COLLECT 3 HOURS AFTER PREVIOUS [id number] 18:07:00* Test Item Value Reference Range Interpretation Comments GLUBED (test code = GLUBED) 92 mg/dL 74-106 N Performed by certified continuous yarn dyeing machine operator at [facility] AG HEPAT B [id number] 17:46:00* Test Item Value Reference Range Interpretation Comments AG HEPAT B SURF (test code = HBSAG) Nonreactive Index Nonreactive URINALYSIS [id number] 15:22:00* Test Item Value Reference Range Interpretation Comments UA COLOR (test code = COLU) YELLOW YELLOW UA APPEARANCE (test code = APPU) HAZY CLEAR A UA GLUCOSE DIPSTICK (test code = DGLUU) NEGATIVE mg/dL NEGATIVE UA BILIRUBIN DIPSTICK (test code = BILU) NEGATIVE NEGATIVE UA KETONE DIPSTICK (test code = KETU) NEGATIVE mg/dL NEGATIVE UA SPECIFIC GRAVITY (test code = SGU) 1.010 1.001-1.035 UA BLOOD DIPSTICK (test code = TIMBO) TRACE NEGATIVE UA PH DIPSTICK (test code = TUSHAR) 7.0 5.0-8.0 UA PROTEIN DIPSTICK (test code = PROU) TRACE (15) mg/dL Neg-15 UA UROBILINIOGEN DIPSTICK (test code = URO) 0.2 mg/dL 0.0-0.2 UA NITRITE DIPSTICK (test code = LEONEL) NEGATIVE NEGATIVE UA LEUKOCYTE ESTERASE W REFLEX (test code = LEUUR) NEGATIVE NEG ATIVE UA WBC (test code = WBCU) 0-5 per HPF 0-5 UA RBC (test code = RBCU) NONE SEEN per HPF 0-5 UA RBC CLUMPS (test code = RBCUCL) N /HPF NONE UA EPITHELIAL CELLS (test code = EPIU) Few (2-5/hpf) per HPF Few UA BACTERIA (test code = BACU) NONE SEEN per HPF NONE Urine Source? Clean CatchURINALYSIS [id number] 14:43:00* Test Item Value Reference Range Interpretation Comments UA COLOR (test code = COLU) YELLOW YELLOW UA APPEARANCE (test code = APPU) HAZY CLEAR A UA GLUCOSE DIPSTICK (test code = DGLUU) NEGATIVE mg/dL NEGATIVE UA BILIRUBIN DIPSTICK (test code = BILU) NEGATIVE NEGATIVE UA KETONE DIPSTICK (test code = KETU) NEGATIVE mg/dL NEGATIVE UA SPECIFIC GRAVITY (test code = SGU) 1.010 1.001-1.035 UA BLOOD DIPSTICK (test code = TIMBO) TRACE NEGATIVE UA PH DIPSTICK (test code = TUSHAR) 7.0 5.0-8.0 UA PROTEIN DIPSTICK (test code = PROU) TRACE (15) mg/dL Neg-15 UA UROBILINIOGEN DIPSTICK (test code = URO) 0.2 mg/dL 0.0-0.2 UA NITRITE DIPSTICK (test code = LEONEL) NEGATIVE NEGATIVE UA LEUKOCYTE ESTERASE W REFLEX (test code = LEUUR) NEGATIVE NEG ATIVE UA WBC (test code = WBCU) per HPF 0-5 UA RBC (test code = RBCU) per HPF 0-5 UA EPITHELIAL CELLS (test code = EPIU) per HPF Few UA BACTERIA (test code = BACU) per HPF NONE Urine Source? Clean CatchB-TYPE NATRIURETIC [id number] 14:36:00* Test Item Value Reference Range Interpretation Comments B-TYPE NATRIURETIC PEPTIDE (test code = BNP) 41.31 pgram/mL 0-100 N URINALYSIS [id number] 14:24:00* Test Item Value Reference Range Interpretation Comments UA COLOR (test code = COLU) YELLOW UA APPEARANCE (test code = APPU) CLEAR UA GLUCOSE DIPSTICK (test code = DGLUU) NEGATIVE mg/dL NEGATIVE UA BILIRUBIN DIPSTICK (test code = BILU) NEGATIVE NEGATIVE UA KETONE DIPSTICK (test code = KETU) NEGATIVE mg/dL NEGATIVE UA SPECIFIC GRAVITY (test code = SGU) 1.010 1.001-1.035 UA BLOOD DIPSTICK (test code = TIMBO) TRACE NEGATIVE UA PH DIPSTICK (test code = TUSHAR) 7.0 5.0-8.0 UA PROTEIN DIPSTICK (test code = PROU) TRACE (15) mg/dL Neg-15 UA UROBILINIOGEN DIPSTICK (test code = URO) 0.2 mg/dL 0.0-0.2 UA NITRITE DIPSTICK (test code = LEONEL) NEGATIVE NEGATIVE UA LEUKOCYTE ESTERASE W REFLEX (test code = LEUUR) NEGATIVE NEG ATIVE UA WBC (test code = WBCU) per HPF 0-5 UA RBC (test code = RBCU) per HPF 0-5 UA EPITHELIAL CELLS (test code = EPIU) per HPF Few UA BACTERIA (test code = BACU) per HPF NONE Urine Source? Clean CatchBASIC METABOLIC [id number] 12:23:00* Test Item Value Reference Range Interpretation Comments SODIUM (test code = NA) 140 mmol/L 136-145 N POTASSIUM (test code = K) 4.5 mmol/L 3.5-5.1 N CHLORIDE (test code = CL) 104.0 mmol/L 98-107 N CARBON DIOXIDE (test code = CO2) 28.0 mmol/L 21-32 N ANION GAP (test code = GAP) 12.5 10-20 N GLUCOSE (test code = GLU) 152 mg/dL 74-106 H BLOOD UREA NITROGEN (test code = BUN) 38 mg/dL 7-18 H GLOMERULAR FILTRATION RATE (test code = GFR) 10 mL/min >=60 Estimated GFR by using Modified MDRD formula.Chronic kidney disease is defined as either kidney damageor GFR <60 mL/min/1.73 m2 for >3 months. CREATININE (test code = CREAT) 4.40 mg/dL 0.55-1.02 H Note change in reference range due to change in reagent. BUN/CREATININE RATIO (test code = BUN/CREA) 8.6 10-20 L CALCIUM (test code = CA) 11.0 mg/dL 8.5-10.1 H HEPATIC FUNCTION [id number] 12:23:00* Test Item Value Reference Range Interpretation Comments TOTAL PROTEIN (test code = PROT) 6.9 gram/dL 6.4-8.2 N ALBUMIN (test code = ALB) 3.1 g/dL 3.4-5.0 L GLOBULIN (test code = GLOB) 3.8 gram/dL 2.7-4.2 N ALBUMIN/GLOBULIN RATIO (test code = A/G) 0.8 0.75-1.50 N BILIRUBIN TOTAL (test code = BILT) 0.20 mg/dL 0.0-1.0 N BILIRUBIN DIRECT (test code = BILD) 0.06 mg/dL 0.0-0.20 N SGOT/AST (test code = AST) 19 IUnit/L 15-37 N SGPT/ALT (test code = ALT) 21 IUnit/L 12-78 N ALKALINE PHOSPHATASE TOTAL (test code = ALKP) 78 IUnit/L 45-117 N Note change in reference range due to change in reagent. HCG SERUM [id number] 12:23:00* Test Item Value Reference Range Interpretation Comments HCG SERUM QUAL (test code = HCGQL) NEGATIVE NEGATIVE This HCGQL test is NOT applicable for MALE patients.Check with nurse about probable order error.If Tumor Marker Test needed, nurse should order test "HCGTU"(Test #550.01797) [id number] 12:23:00* Test Item Value Reference Range Interpretation Comments TROPONIN-I (test code = TROPI) <0.015 ng/mL 0-0.045 N BASIC METABOLIC [id number] 11:54:00* Test Item Value Reference Range Interpretation Comments SODIUM (test code = NA) mmol/L 136-145 POTASSIUM (test code = K) mmol/L 3.5-5.1 CHLORIDE (test code = CL) mmol/L 98-107 CARBON DIOXIDE (test code = CO2) mmol/L 21-32 ANION GAP (test code = GAP) 10-20 GLUCOSE (test code = GLU) mg/dL 74-106 BLOOD UREA NITROGEN (test code = BUN) mg/dL 7-18 GLOMERULAR FILTRATION RATE (test code = GFR) mL/min >=60 CREATININE (test code = CREAT) mg/dL 0.55-1.02 BUN/CREATININE RATIO (test code = BUN/CREA) 10-20 CALCIUM (test code = CA) mg/dL 8.5-10.1 HEPATIC FUNCTION [id number] 11:54:00* Test Item Value Reference Range Interpretation Comments TOTAL PROTEIN (test code = PROT) gram/dL 6.4-8.2 ALBUMIN (test code = ALB) g/dL 3.4-5.0 GLOBULIN (test code = GLOB) gram/dL 2.7-4.2 ALBUMIN/GLOBULIN RATIO (test code = A/G) 0.75-1.50 BILIRUBIN TOTAL (test code = BILT) mg/dL 0.0-1.0 BILIRUBIN DIRECT (test code = BILD) mg/dL 0.0-0.20 SGOT/AST (test code = AST) IUnit/L 15-37 SGPT/ALT (test code = ALT) IUnit/L 12-78 ALKALINE PHOSPHATASE TOTAL (test code = ALKP) IUnit/L 45-117 HCG SERUM [id number] 11:54:00* Test Item Value Reference Range Interpretation Comments HCG SERUM QUAL (test code = HCGQL) NEGATIVE NEGATIVE This HCGQL test is NOT applicable for MALE patients.Check with nurse about probable order error.If Tumor Marker Test needed, nurse should order test "HCGTU"(Test #550.24870) [id number] 11:54:00* Test Item Value Reference Range Interpretation Comments TROPONIN-I (test code = TROPI) ng/mL 0-0.045 BASIC METABOLIC [id number] 11:54:00* Test Item Value Reference Range Interpretation Comments SODIUM (test code = NA) 140 mmol/L 136-145 N POTASSIUM (test code = K) 4.5 mmol/L 3.5-5.1 N CHLORIDE (test code = CL) 104.0 mmol/L 98-107 N CARBON DIOXIDE (test code = CO2) mmol/L 21-32 ANION GAP (test code = GAP) 10-20 GLUCOSE (test code = GLU) mg/dL 74-106 BLOOD UREA NITROGEN (test code = BUN) mg/dL 7-18 GLOMERULAR FILTRATION RATE (test code = GFR) mL/min >=60 CREATININE (test code = CREAT) mg/dL 0.55-1.02 BUN/CREATININE RATIO (test code = BUN/CREA) 10-20 CALCIUM (test code = CA) mg/dL 8.5-10.1 HEPATIC FUNCTION [id number] 11:54:00* Test Item Value Reference Range Interpretation Comments TOTAL PROTEIN (test code = PROT) gram/dL 6.4-8.2 ALBUMIN (test code = ALB) g/dL 3.4-5.0 GLOBULIN (test code = GLOB) gram/dL 2.7-4.2 ALBUMIN/GLOBULIN RATIO (test code = A/G) 0.75-1.50 BILIRUBIN TOTAL (test code = BILT) mg/dL 0.0-1.0 BILIRUBIN DIRECT (test code = BILD) mg/dL 0.0-0.20 SGOT/AST (test code = AST) IUnit/L 15-37 SGPT/ALT (test code = ALT) IUnit/L 12-78 ALKALINE PHOSPHATASE TOTAL (test code = ALKP) IUnit/L 45-117 HCG SERUM [id number] 11:54:00* Test Item Value Reference Range Interpretation Comments HCG SERUM QUAL (test code = HCGQL) NEGATIVE NEGATIVE This HCGQL test is NOT applicable for MALE patients.Check with nurse about probable order error.If Tumor Marker Test needed, nurse should order test "HCGTU"(Test #550.71065) [id number] 11:54:00* Test Item Value Reference Range Interpretation Comments TROPONIN-I (test code = TROPI) ng/mL 0-0.045 CBC W/O [id number] 11:42:00* Test Item Value Reference Range Interpretation Comments WHITE BLOOD CELL (test code = WBC) 13.0 K/mm3 4.5-12.5 H RED BLOOD CELL (test code = RBC) 4.25 mill/mm3 3.7-5.2 N HEMOGLOBIN (test code = HGB) 12.6 gram/dL 11.5-15.5 N HEMATOCRIT (test code = HCT) 39.7 % 36.0-46.0 N MEAN CELL VOLUME (test code = MCV) 93.4 fL 80-98 N MEAN CELL HGB (test code = MCH) 29.6 picogram 27.0-33.0 N MEAN CELL HGB CONCETRATION (test code = MCHC) 31.7 gram/dL 33.0-36. 0 L RED CELL DISTRIBUTION WIDTH (test code = RDW) 15.5 % 11.6-16. 2 N PLATELET COUNT (test code = PLT) 220 K/mm3 150-450 N MEAN PLATELET VOLUME (test code = MPV) 11.2 fL 6.7-11.0 H - XR CHEST 1 [id number] 11:16:00 FAX: Bronson Guajardo MD [place]: St: REG FAX: Zoey Burch MD [phone] Name: GATO BEVERLY [facility] : 1955 Age/S: 63/F [address] [facility] Unit #: [id number] Loc: [place] [address] Phys: Bronson Guajardo MD Acct: [id number] Dis Date: Status: REG ER PHONE #: [phone] Exam Date: 09/23/2019 1040 FAX #: [phone] Reason: WEAKNESS EXAMS: CPT CODE: [id number] XR CHEST 1 V [id number] REASON FOR EXAM: WEAKNESS Exam Order Date: 09/23/2019 10:31 AM Ordering Jakub: Bronson Guajardo MD PROCEDURE: - XR CHEST 1 V COMPARISON: Chest x-ray October 04, 2018 FINDINGS: The lungs are clear other than mild subsegmental atelectasis in the lung bases. There is no pleural effusion or pneumothorax. Pulmonary vascularity is within normal limits. Card iomediastinal silhouette is enlarged but stable in size. There is a right IJ dialysis catheter terminating in the distal IVC/cavoatrial junction. There are degenerative changes of the thoracic spine. The visualized upper abdomen is within normal limits. IM PRESSION: No acute cardiopulmonary process. Location: [facility] at 1116 Reported and signed by: Scott Messina MD CC: Bronson Guajardo MD; Zoey Bello MD Technologist: Christiane John(R); Toya JACQUES(R) Trnscrd Date/Time/By: 09/23/2019 (1116) : By: [email or web address] Orig Print D/T: S: 09/23/2019 (1119) PAGE 1 Signed Report - CT HEAD/BRAIN W/O [id number] 11:06:00 Name: GATO BEVERLY [facility] : 1955 Age/S: 63 / F [address] [facility] Unit #: [id number] Loc: [place] [address] Phys: Bronson Guajardo MD Acct: [id number] Dis Date: Status: REG ER PHONE #: [phone] Exam Date: 09/23/2019 1035 FAX #: [phone] Reason: weakness, fall EXAMS: CPT CODE: [id number] CT HEAD/BRAIN W/O CONT 60061 HISTORY: weakness, fall TECHNIQUE: Noncontrast 2.[address] of the head. Examination acquired within 24 hours of arrival. Automated exposure control for dose reduction. COMPARISON: Noncontrast CT brain September 18, 2019 FINDINGS: No lacerations or contusions of the scalp or facial soft tissues. Calvarium and skull base are intact. No acute hemorrhage. No intracranial mass, mass effect, or midline shift. No effacement of the sulci or colon- white matter interface. There is cortical atrophy and there are microvascular ischemic changes of the white matter which appear similar to the prior exam. Visualized paranasal sinuses are clear. Mastoid air cells and middle ear cavities are clear. Orbital contents are unremarkable. IMPRESSION: No acute intracranial process. Cortical atrophy and microvascular ischemic changes of the white matter appears similar to the prior exam. Location: [facility] at 1106 Reported and signed by: Scott Messina MD CC: Bronson Guajardo MD; Zoey Bello MD Technologist:Phyllis Mosqueda RT(R),CT; CTDI: DLP: Trnscb Date/Time: 09/23/2019 (1106) [email or web address] Orig Print D/T: S: 09/23/2019 (3647) PAGE 1 Signed Report - CT HEAD/BRAIN W/O [id number] 18:17:00 Name: GATO BEVERLY [facility] : 1955 Age/S: 63 / F [address] [facility] Unit #: [id number] Loc: [place] [address] Phys: Jason Covington MD Acct: [id number] Di s Date: Status: REG ER PHONE #: [phone] Exam Date: 09/18/2019 1512 FAX #: Reason: HEAD INJURY EXAMS: CPT CODE: [id number] CT HEAD/BRAIN W/O CONT 91034 EXAM: CT of the head with out contrast; INFORMATION: Head injury; TECHNIQUE AN D FINDINGS: CT dose reduction protocol; 2.5 mm axial scans. Th ere is no evidence of intra or extra-axial hemorrhage, mass lesions or mid line shift. Unremarkable prakash/white matter differentiation. Ventricl es are symmetric and of normal diameter; sulci and basilar cisterns are in tact. There is internal hyperostosis; otherwise, the calvarium is intact. No evidence of skull fracture. Paranasal sinuses and mastoid air janet ls are well aerated. IMPRESSION: Normal CT scan of the h ead; no evidence of intracranial hemorrhage or other acute abnormalities . Location code: [facility] Electronically Pau d by Jakub Rob on 09/18/2019 at 1817 Reported and signed by: Temo Rob M.D. CC: Jason Covington MD; Zoey Bello MD Techno logist:Ela Tam RT(R); JASS Yates CTDI: DLP: Trnscb Date/Time : 09/18/2019 (1816) [email or web address] Orig Print D/T: S: 09/18/19 20 (1819) PAGE 1 Signed Report CHEST 2 [id number] 14:49:00 [place] [id number] Patient Name: GATO BEVERLY MR #: [id number] : 1955 Age/Sex: 63/F Req #: [id number] Adm Physician: Ordered by: ARISTEO GARCIA MD Report #: [id number] Location: ER Room/Bed: Procedure: [id number] DX/C HEST 2 VIEWS Exam Date: Exam Time: REPORT STATUS: Signed EXAMINATION: CHEST 2 VIE WS INDICATION: pulled out dialysis cath Y COMPARIS ON: Chest radiograph 02/04/2019 FINDINGS: PA and lateral views T UBES and LINES: None. LUNGS: Lungs are well inflated. Bilateral intersti tial edema. No lobar consolidations. PLEURA: No pleural effusion or pn eumothorax. HEART AND MEDIASTINUM: Stable mild enlargement of the cardiac silhouette. Mild calcifications of the aortic arch. BONES AND SOFT TISSUE S: No acute osseous lesion. Soft tissues are unremarkable. UPPER ABDOME N: No free air under the diaphragm. IMPRESSION: No visualized fragments of hemodialysis catheter in the right upper left or hemithorax. No pneumothor ax. Bilateral interstitial edema. Signed by: Dr. Danae Arshad M.D. on 06/22/2019 2:51 PM Dictated By: DANAE ARSHAD MD 50 Transcri bed By: JULIAN on 06/22/191450 COPY TO: ARISTEO GARCIA MD CHEST 2 [id number] 09:15:00 [place] [id number] Patient Name: GATO BEVERLY MR #: [id number] : 1955 Age/Sex: 63/F Req #: [id number] Adm Physician: Ordered by: MARTA JACOBS MD Report #: [id number] Location: [facility] Room/Bed: Procedure: [id number] DX/ CHEST 2 VIEWS Exam Date: 02/04/19 Exam Time: 0850 REPORT STATUS: Signed EXAMINATI ON: PA and lateral views of the chest. COMPARISON: None CLINICAL HISTO RY: Predialysis screening DISCUSSION: The lungs are well-inflate d. No focal airspace consolidation, pleural effusion, or pneumothorax. Tortuou s thoracic aorta with otherwise normal heart size. No pulmonary edema. No acute osseous abnormality. IMPRESSION: No acute cardiopulmonary abnorma lities. Signed by: Dr. Mildred Rios M.D. on 02/04/2019 9:18 AM Dictated By: MILDRED RIOS MD 7 Transcribed By: JULIAN on 02/04/19917 COPY TO: MARTA KNIGHT MD [id number] 19:40:00* Test Item Value Reference Range Interpretation Comments GLUBED (test code = GLUBED) 130 MG/DL 70-110 H Performed by certified continuous yarn dyeing machine operator at [facility] [id number] 15:11:00* Test Item Value Reference Range Interpretation Comments GLUBED (test code = GLUBED) 107 MG/DL 70-110 N Performed by certified continuous yarn dyeing machine operator at [facility] PROTHROMBIN [id number] 09:35:00* Test Item Value Reference Range Interpretation Comments PROTHROMBIN TIME PATIENT (test code = PTP) 11.6 SECONDS 9.3-12.9 N INTERNATIONAL NORMAL RATIO (test code = INR) 1.0 0.8-1.2 N TARGET INR BY INDICATION Indication INR1. Prophylaxis of venous thrombosis 2.0 - 3.0 (orthopedic surgery), Prophylaxis of venous thrombosis (other than high-risk surgery), Treatment of Deep Vein Thrombosis/Pulmonary Embolism, Prevention of systemic embolism - Tissue heart valves, Acute Myocardial Infarction (to prevent systemic embolism), Valvular heart disease, Atrial Fibrillation, Bileaflet mechanical valve in aortic position.2. Mechanical prosthetic valves (high risk), 2.5 - 3.5 Presence of Lupus Anticoagulant or Antiphospholipid Antibodies, Prevention of systemic embolism - Acute Myocardial Infarction (to prevent recurrent infarct). THROMBOPLASTIN TIME [id number] 09:35:00* Test Item Value Reference Range Interpretation Comments THROMBOPLASTIN TIME PARTIAL (test code = PTT) 30.8 Seconds 25.0-39. 5 N Therapeutic Range: 61.8-83.8 Sec Effective 09/17/2013 BASIC METABOLIC [id number] 09:34:00* Test Item Value Reference Range Interpretation Comments SODIUM (test code = NA) 144 mEq/L 134-147 N POTASSIUM (test code = K) 4.9 mEq/L 3.4-5.0 N CHLORIDE (test code = CL) 112 mEq/L 100-108 H CARBON DIOXIDE (test code = CO2) 26 mEq/L 21-33 N ANION GAP (test code = GAP) 11 0-20 N GLUCOSE (test code = GLU) 126 mg/dL 70-110 H BLOOD UREA NITROGEN (test code = BUN) 89 mg/dL 7-18 H GLOMERULAR FILTRATION RATE (test code = GFR) 13.2 80-90 L Units of measure = ml/min/1.73 m2 CREATININE (test code = CREAT) 3.5 mg/dL 0.6-1.3 H CALCIUM (test code = CA) 9.0 mg/dL 8.0-10.5 N CBC W/AUTO [id number] 09:27:00* Test Item Value Reference Range Interpretation Comments WHITE BLOOD CELL (test code = WBC) 9.50 x10 3/uL 4.5-11.0 N RED BLOOD CELL (test code = RBC) 3.37 x10 6/uL 3.54-5.02 L HEMOGLOBIN (test code = HGB) 10.7 g/dL 11.0-15.0 L HEMATOCRIT (test code = HCT) 33.4 % 33.0-45.0 N MEAN CELL VOLUME (test code = MCV) 99.1 fL 81.0-99.0 H MEAN CELL HGB (test code = MCH) 31.8 pg 27.0-33.0 N MEAN CELL HGB CONCETRATION (test code = MCHC) 32.0 g/dL 33.0-37. 0 L RED CELL DISTRIBUTION WIDTH CV (test code = RDW) 16.1 % 11.5- 14.5 H RED CELL DISTRIBUTION WIDTH SD (test code = RDW-SD) 58.7 fL 37 .0-54.0 H PLATELET COUNT (test code = PLT) 191 x10 3/uL 150-400 N MEAN PLATELET VOLUME (test code = MPV) 12.3 fL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
--- OUTSIDE RECORDS SUMMARY | 2020-07-14 12:53 | XMS REPORT | Continuity of Care Document ---
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 Active Diagnosis 04/04/2020 [facility] Medications Medication Details Route Status Patient Instructions Ordering Provider Order Date Source Risperidone 1/2 tablet Orally Active 3 MG Orally Once a day [facility] Colace 1 capsule as needed Orally Active 100 MG Orally twice a day [facility] Diltiazem HCl ER 1 tablet at t he same time each day Orally Active 240 MG Orally Once a day [facility] Allopurinol 1 tablet Orally Active 100 MG Orally daily [facility] Humalog not defined NA Active [facility] Aspirin 1 tablet Orally Active 81 MG Orally Once a day [facility] Pravastatin Sodium 1 tablet Orally Active 40 MG Orally Once a day [facility] Acetaminophen 1 tablet as need ed Orally Active 325 MG Orally every 4 hrs [facility] Labetalol HCl 1 tablet Orally Active 100 MG Orally Twice a d ay [facility] Depakote 1 tablet q am & 2 tab lets q hs Orally Active 250 MG Orally as directed [facility] Onglyza not defined NA Active [facility] Benztropine Mesylate 1 tablet at bedtime [facility] 1 capsule Orally Active 0.25 MCG Orally Once a day [facility] BuPROPion HCl 1 tablet Orally Active 75 MG Orally Once a day [facility] Allergies, Adverse Reactions, Alerts Substance Category Reaction Severity Reaction type Status Date Reported Comments Source Sulfur Adverse Reaction anaphylaxis Adverse Reaction Active 03/18/2020 [facility] Dicyclomine HCl Adverse Reacti on hives Adver se Reaction Active 03/18/2020 [facility] Immunizations No Data Provided for This Section Results No Data Provided for This Section Pathology Reports No Data Provided for This Section Diagnostic Reports No Data Provided for This Section Consultation Notes No Data Provided for This Section Discharge Summaries No Data Provided for This Section History and Physicals No Data Provided for This Section Vital Signs Vital Sign Value Date Comments Source Weight 160 03/18/2020 [facility] Weight 158 02/18/2020 [facility] Weight 158 01/21/2020 [facility] Weight 171 12/26/2019 [facility] Weight 210 10/27/2019 [facility] Height 66 0 10/27/2019 [facility] Heart Rate 110 10/27/2019 [facility] Diastolic (mm Hg) 88 10/27/2019 [facility] Systolic (mm Hg) 139 10/27/2019 [facility] Encounters No Data Provided for This Section Procedures No Data Provided for This Section Assessment and Plan No Data Provided for This Section Plan of Care No Data Provided for This Section Social History No Data Provided for This Section Family History No Data Provided for This Section Advance Directives No Data Provided for This Section Functional Status No Data Provided for This Section
[2020-07-14 13:03] LABS: BASOPHILS # (AUTO) 0.1 (0.0-0.1); BASOPHILS % 0.4 % (0.0-1.0); EOSINOPHILS # (AUTO) 0.2 (0.0-0.4); EOSINOPHILS % 1.2 % (0.0-6.0); HEMATOCRIT 43.1 % (34.2-44.1); HEMOGLOBIN 13.5 g/dL (12.0-16.0); LYMPHOCYTES # (AUTO) 1.4 (1.0-3.2); LYMPHOCYTES % 10.4 % (18.0-39.1); MEAN CORPUSCULAR HEMOGLOBIN 28.8 pg (28-32); MEAN CORPUSCULAR HGB CONC 31.3 g/dL (31-35); MEAN CORPUSCULAR VOLUME 92.1 fL (81-99); MONOCYTES # (AUTO) 1.1 (0.2-0.8); MONOCYTES % 8.1 % (4.4-11.3); NEUTROPHILS # (AUTO) 10.9 (2.1-6.9); NEUTROPHILS % 78.8 % (38.7-80.0); PLATELET COUNT 232 x10e3/uL (140-360); RED BLOOD COUNT 4.68 x10e6/uL (3.6-5.1); RED CELL DISTRIBUTION WIDTH 13.9 % (11.7-14.4)
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
[2020-07-14 13:22] LABS: ALBUMIN 3.6 g/dL (3.5-5.0); ANION GAP 22.2 mmol/L (8-16); CREATININE, SERUM 5.78 mg/dL (0.57-1.11); POTASSIUM 4.2 mmol/L (3.5-5.1)
[2020-07-14 13:28] LABS: INR 1.06; PROTHROMBIN TIME 14.3 seconds (11.9-14.5)
[2020-07-14 13:29] LABS: PARTIAL THROMBOPLASTIN TIME 25.9 seconds (23.8-35.5)
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
[2020-07-14 13:40] LABS: CREATINE KINASE 80 IU/L (29-168)
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
[2020-07-14 13:44] LABS: SALICYLATE < 5.0 mg/dL (0-30)
--- NOTE | 2020-07-14 14:01 | Diagnostic Imaging Report ---
CT BRAIN WO HISTORY: Altered mental status COMPARISON: Report from head CT dated 06/23/2017 TECHNIQUE: Noncontrast axial scans were obtained from skull base to the vertex. Coronal and sagittal reconstructions obtained from the axial data. One or more of the following dose reduction techniques were used: Automated exposure control, adjustment of the mA and/or kV according to patient size, and/or utilization of iterative reconstruction technique. Motion artifacts obscure some details. DISCUSSION: Scalp/Skull: Unremarkable. Brain sulci: Appropriate for patient's age. Ventricles: Normal in size and configuration. No hydrocephalus. Extra-axial spaces: No masses or fluid collections. Mild carotid siphon and vertebral artery calcifications are present. Parenchyma: There is slight mild disproportionate cerebellar volume loss. No mass, hemorrhage, or large vascular territory acute infarct. Dural sinuses: No abnormal densities. Sellar/Suprasellar region: Intact. Skull base: Intact. Incidental findings: None. IMPRESSION: 1. No acute intracranial abnormalities. 2. Slight mild disproportionate cerebellar volume loss. Signed by: Dr. Marlon Mendez M.D. on 07/14/2020 1:58 PM
--- NOTE | 2020-07-14 14:06 | Diagnostic Imaging Report ---
EXAMINATION: CHEST SINGLE (PORTABLE) INDICATION: Overdose COMPARISON: Chest radiograph 06/22/2019 FINDINGS: LINES/TUBES:None LUNGS:The lungs are well-inflated. No focal consolidation or pulmonary edema. PLEURA:No pleural effusion or pneumothorax. MEDIASTINUM:The cardiomediastinal silhouette appears normal in size and shape. BONES/SOFT TISSUES:No acute osseous injury. ABDOMEN:No free air under the diaphragm. IMPRESSION: No focal pneumonia or pulmonary edema. Signed by: Maty Lo MD on 07/14/2020 2:03 PM
--- NOTE | 2020-07-14 14:12 | Diagnostic Imaging Report ---
EXAMINATION: SHOULDER LEFT COMPLETE, FOREARM LEFT 2 VIEW, ELBOW LEFT COMPLETE INDICATION: Left shoulder and arm pain COMPARISON: None FINDINGS: Left shoulder: Internal and external rotation views demonstrate no acute fracture or dislocation. Alignment is anatomic. Mild acromioclavicular degenerative changes. Soft tissues appear unremarkable. Left elbow: AP, lateral and oblique images of the left elbow demonstrate contour irregularity at the radial head and likely elbow joint effusion, concerning for acute radial head fracture. Left forearm: AP, lateral and oblique images of the left forearm demonstrate no acute fracture or dislocation. IMPRESSION: Findings concerning for acute minimally displaced radial head fracture with small associated elbow joint effusion. No acute osseous injury of the shoulder or forearm. Signed by: Maty Lo MD on 07/14/2020 2:09 PM
[2020-07-14 14:14] LABS: THYROID STIMULATING HORMONE 0.756 uIU/mL (0.350-4.940)
[2020-07-14 14:17] LABS: BILIRUBIN,URINE SMALL (NEGATIVE); CLARITY,URINE SL CLOUDY (CLEAR); COLOR,URINE AMBER (YELLOW); KETONES,URINE TRACE (NEGATIVE); LEUKOCYTE ESTERASE ,URINE NEGATIVE (NEGATIVE); NITRITE,URINE NEGATIVE (NEGATIVE); PROTEIN,URINE DIPSTICK 2+ (NEGATIVE); URINE UROBILINOGEN 0.2 mg/dL (0.2 - 1)
[2020-07-14 14:21] LABS: AMPHETAMINES SCREEN,URINE NEGATIVE (NEGATIVE); BENZODIAZEPINES SCREEN,URINE NEGATIVE (NEGATIVE); PHENCYCLIDINE SCREEN,URINE NEGATIVE (NEGATIVE)
[2020-07-14] MEDS: SODIUM CHLORIDE 0.9% 1000ML 1,000 ML IV SCH ×3 (14:21→22:43)
[2020-07-14 14:38] LABS: AMORPHOUS SEDIMENT,URINE MODERATE (FEW); BACTERIA,URINE RARE /HPF; EPITHELIAL CELLS,URINE FEW /LPF; WBC,URINE (MAN) 0-5 /HPF (0-5)
--- OUTSIDE RECORDS SUMMARY | 2020-07-14 16:20 | XMS REPORT | Continuity of Care Document ---
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 Diagnosis 04/04/2020 [facility] Medications Medication Details Route Status Patient Instructions Ordering Provider Order Date Source Risperidone 1/2 tablet Orally Active 3 MG Orally Once a day [facility] Colace 1 capsule as needed Orally Active 100 MG Orally twice a day [facility] Diltiazem HCl ER 1 tablet at t he same time each day Orally Active 240 MG Orally Once a day [facility] Allopurinol 1 tablet Orally Active 100 MG Orally daily [facility] Humalog not defined NA Active [facility] Aspirin 1 tablet Orally Active 81 MG Orally Once a day [facility] Pravastatin Sodium 1 tablet Orally Active 40 MG Orally Once a day [facility] Acetaminophen 1 tablet as need ed Orally Active 325 MG Orally every 4 hrs [facility] Labetalol HCl 1 tablet Orally Active 100 MG Orally Twice a d ay [facility] Depakote 1 tablet q am & 2 tab lets q hs Orally Active 250 MG Orally as directed [facility] Onglyza not defined NA Active [facility] Benztropine Mesylate 1 tablet at bedtime Orally Active 0.5 [facility] Calcit[facility] 1 capsule Orally Active 0.25 MCG Orally Once a day [facility] BuPROPion HCl 1 tablet Orally Active 75 MG Orally Once a day [facility] Allergies, Adverse Reactions, Alerts Substance Category Reaction Severity Reaction type Status Date Reported Comments Source Sulfur Adverse Reaction anaphylaxis Adverse Reaction Active 03/18/2020 [facility] Dicyclomine HCl Adverse Reacti on hives Adver se Reaction Active 03/18/2020 [facility] Immunizations No Data Provided for This Section [...] Value Date Comments Source Weight 160 03/18/2020 [facility] Weight 158 02/18/2020 [facility] Weight 158 01/21/2020 [facility] Weight 171 12/26/2019 [facility] Weight 210 10/27/2019 [facility] Height 66 0 10/27/2019 [facility] Heart Rate 110 10/27/2019 [facility] Diastolic (mm Hg) 88 10/27/2019 [facility] Systolic (mm Hg) 139 10/27/2019 [facility] Encounters No Data Provided for This Section [...]
--- OUTSIDE RECORDS SUMMARY | 2020-07-14 16:20 | XMS REPORT | Continuity of Care Document ---
Author Author [facility] t Organization [facility] Address 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 Role Phone PRADEEP RUTHERFORD, ZOEY PCP Woody Goncalves Attphys Unavailable JOSE, Festus ALBERTS Attphys Unavailable Janes JACOBS Attphys Unavailable ZOEY BELLO Attphys Unavailable Payers Payer Name Policy Type Policy Number Effective Date Expiration Date S [employer] [id number] 2015 00:00:0 0 [facility] Medicare A & B [id number] 1978 00:00:00 C [facility] Problems Condition Name Condition Details Condition Category Status Onset Date Resolution Date Last Treatment Date Treating Clinician Comments Source Bipolar disorder, current episode mixed, unspecified Bipolar disorder, current episode mixed, unspecified Active Diagnosis 04/04/2020 [facility] Diagnosis Active 2020-04-04 02:47:59 Jesus Michaud 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 Active Diagnosis 04/04/2020 [facility] Diagnosis Active 2020-04-04 02:47:59 Jesus Michaud Allergies, Adverse Reactions, Alerts Allergy Name Allergy Type Status Severity Reaction(s) Onset Date Inacti ve Date Treating Clinician Comments Source Sulfur Sulfur Active anaphylaxis 2020-03-18 00:00:00 Jesus Michaud Dicyclomine HCl Dicyclomine HCl Active hives 2020-03-18 00:00:00 Jesus Michaud Penicillins DA Active U 2018-11-19 00:00:00 [facility] Sulfa (Sulfonamide Antibiotics) DA Active U 2018-11-19 00 :00:00 [facility] doxycycline DA Active U 2018-11-19 00:00:00 [facility] Penicillins DA Active U 2015-02-11 00:00:00 [facility] Sulfa (Sulfonamide Antibiotics) DA Active U 2015-02-11 00 :00:00 [facility] doxycycline DA Active U 2015-02-11 00:00:00 [facility] Doxycycline Allergy to Substance Active Moderate RASH 2015-02-02 00:00: 00 [facility] Penicillin Allergy to Substance Active Mild ITCHING 2010-04-06 00:00:00 [facility] Sulfa (Sulfonamide Antibiotics) Allergy to Substance Active Mild ITCHING 2010-04-06 00:00:00 [facility] Chlorpromazine Allergy to Substance Active Mild SAGGING OF JAW 2010-04-06 00:00:00 [facility] Social History Social Habit Start Date Stop Date Quantity Comments Source Sex Assigned At [facility] Medications Ordered Medication Name Filled Medication Name Start Date Stop Da te Current Medication? Ordering Clinician Indication Dosage Frequency Signature (SIG) Comments Components Source Risperidone 2020-04-04 02:47:59 Yes Tory Navarro 1/2 tablet [facility] Colace 2020-04-04 02:47:59 Yes Tory Navarro [address] [facility] Diltiazem HCl ER 2020-04-04 02:47:59 Yes Tory Navarro 1 tablet at the same time each day [facility] Allopurinol 2020-04-04 02:47:59 Yes Tory Poolean 1 tablet [facility] Humalog 2020-04-04 02:47:59 Yes Tory Navarro n ot defined [facility] Aspirin 2020-04-04 02:47:59 Yes Tory Poolean 1 tablet [facility] Pravastatin Sodium 2020-04-04 02:47:59 Yes Tory Poolean 1 tablet [facility] Acetaminophen 2020-04-04 02:47:59 Yes Tory Navarro [address] [facility] Labetalol HCl 2020-04-04 02:47:59 Yes Tory Navarro [address] [facility] Depakote 2020-04-04 02:47:53 Yes Tory Palkman 1 tablet q am & 2 tablets q hs [facility] Onglyza 2020-04-04 02:47:53 Yes Tory Navarro n ot defined [facility] Benztropine Mesylate 2020-04-04 02:47:53 Yes Tory Pal adelso [address] [facility] Calcitriol 2020-04-04 02:47:53 Yes Torycarole Navarro [address] [facility] BuPROPion HCl 2020-04-04 02:47:53 Yes Tory Palkman [address] [facility] Aspirin 325 Mg Tab Aspirin 325 Mg Tab 2016-03-16 00:00:00 Yes Adithya Zhang Pa 325 Twice A Day [facility] Allopurinol 100 Mg Tablet Allopurinol 100 Mg Tablet Yes 100 Daily [facility] Benztropine Mesylate 1 Mg Tablet Benztropine Mesylate 1 Mg Tablet Yes Bedtime [facility] Bupropion Hcl 75 Mg Tablet Bupropion Hcl 75 Mg Tablet Yes 75 Daily [facility] Calcitriol 0.25 Mcg Capsule Calcitriol 0.25 Mcg Capsule Yes 1 Daily [facility] Diltiazem Hcl (Diltiazem 24HR Er) 240 Mg Tab.sr.24h Di ltiazem Hcl (Diltiazem 24HR Er) 240 Mg Tab.sr.24h Yes 1 Daily [facility] Divalproex Sodium (Depakote) 250 Mg Tablet. Divtompro ex Sodium (Depakote) 250 Mg Tablet. Yes 2 Daily [facility] Labetalol Hcl 100 Mg Tablet Labetalol Hcl 100 Mg Tablet Yes 1 Three Times A Day [facility] Pravastatin Sodium (Pravachol) 40 Mg Tablet Pravastati n Sodium (Pravachol) 40 Mg Tablet Yes 1 Bedtime [facility] Risperidone (Risperdal) 3 Mg Tablet Risperidone (Risperdal) 3 Mg Tabl et Yes 1 Bedtime [facility] Saxagliptin Hcl (Onglyza) 5 Mg Tablet, Oral Saxaglip tin Hcl (Onglyza) 5 Mg Tablet, Oral 2019-06-22 00:00:00 No Bedtime [facility] Ciprofloxacin Hcl (Ciprodex Otic Suspension*) 7.5 Ml D rpette, 4 Drop Left Ear Ciprofloxacin Hcl (Ciprodex Otic Suspension*) 7.5 Ml Drpette, 4 Drop Left Ear 2016-03-10 00:00:00 No 4 Twice A Day [facility] Hydrocodone Bit/Acetaminophen (Hydrocodo n-Acetaminoph 7.5-325) 1 Each Tablet, Mg Oral Hydrocodone Bit/Acetaminophen (Hydrocodo n-Acetaminoph 7.5-325) 1 Each Tablet, Mg Oral 2016-03-10 00:00:00 No As Need ed for Pain [facility] Spironolactone, Micronized (Spironolactone) 1 Gm Powde r, 25 Mg Oral Spironolactone, Micronized (Spironolactone) 1 Gm Powder, 25 Mg Oral 2016-03-10 00:00:00 No 25 Daily [facility] Vital Signs Vital Name Observation Time Observation Value Comments Source Weight 2020-03-18 21:45:00 [facility] Weight 2020-02-18 21:45:00 [facility] Weight 2020-01-21 21:15:00 [facility] Weight 2019-12-26 22:00:00 [facility] Weight 2019-10-27 15:45:00 [facility] Height 2019-10-27 15:45:00 [facility] Heart Rate 2019-10-27 15:45:00 [facility] Diastolic (mm Hg) 2019-10-27 15:45:00 [facility] Systolic (mm Hg) 2019-10-27 15:45:00 Lei Michaud Procedures Procedure Date / Time Performed Performing Clinician Santana lisa X-ray of chest, two views 2019-06-22 00:00:00 ARISTEO GARCIA [facility] X-ray of chest, two views 2019-02-04 00:00:00 MARTA JACOBS I [facility] Encounters Start Date/Time End Date/Time Encounter Type Admission Type Attendi [facility] Care Department Encounter ID Source 2019-06-23 08:32:51 Outpatient [facility] [address] [place] [address] 2020-03-18 16:45:00 2020-03-18 16:45:00 Outpatient SHUN [place]TON MD [place] [id number] [employer] 2020-03-16 17:48:00 2020-03-16 17:48:00 Outpatient Shun Melton MD [place] [id number] [employer] 2020-03-16 17:46:00 2020-03-16 17:46:00 Outpatient Shun Melton MD PA [id number] [employer] 2020-03-16 17:43:00 2020-03-16 17:43:00 Outpatient Shun Melton MD [place] [id number] [employer] 2020-03-16 14:44:00 2020-03-16 14:44:00 Outpatient Shun Melton MD [place] [id number] [employer] 2020-02-18 16:45:00 2020-02-18 16:45:00 Outpatient SHUN MELTON MD [place] [id number] [employer] 2020-01-21 16:15:00 2020-01-21 16:15:00 Outpatient SHUN MELTON MD [place] [id number] [employer] 2019-12-26 17:00:00 2019-12-26 17:00:00 Outpatient SHUN MELTON MD [place] [id number] [employer] 2019-11-26 10:45:00 2019-11-26 10:45:00 [place]patient SHUN [place]ELTON MD [place] [id number] [employer] 2019-11-05 10:30:00 2019-11-05 10:30:00 Outpatient SHUN MELTON MD [place] [id number] [employer] 2019-11-03 10:50:00 2019-11-03 10:50:00 Outpatient Shun Melton MD [place] [id number] [employer] 2019-10-31 10:21:00 2019-10-31 10:21:00 Outpatient Shun Melton MD [place] [id number] [employer] 2019-10-29 11:44:00 2019-10-29 11:44:00 Outpatient Shun WATTERS [id number] [employer] 2019-10-27 10:45:00 2019-10-27 10:45:00 Outpatient SHUN WATTERS [id number] [employer] 2019-09-10 08:13:00 2019-09-10 08:13:00 Outpatient MHSE ZORAIDA [id number] [facility] 2019-06-22 12:35:00 2019-06-22 15:22:00 [facility] [id number] [facility] 2019-05-21 13:23:00 2019-05-21 13:23:00 Outpatient MHSE ZORAIDA [id number] [facility] 2019-02-04 08:46:00 2019-02-04 08:46:00 Registered Clinic 3 MARTA JACOBS [facility] [id number] [facility] 2018-09-24 16:31:00 2018-09-24 16:31:00 Registered Clinic 3 ZOEY BELLO [facility] [id number] [facility] 2017-10-09 17:38:00 2017-10-10 00:04:00 Departed Emergency Room [facility] [id number] [facility] 2017-06-23 16:11:00 2017-06-23 22:31:00 Departed Emergency Room ER ARISTEO GARCIA [facility] [id number] [facility] 2017-02-23 12:47:00 2017-02-23 12:47:00 Registered Clinic [facility] [id number] [facility] Results Test Description Test Time Test Comments Results Result Comments Source FOREARM LEFT 2 VIEW 2020-07-14 14:03:00 [facility] : 1955 Sex: F [facility] [address] [address] Patient Name: GATO BEVERLY MR #: [id number] : 1955 Age/Sex: 64/F Req #: [id number] [facility] Physician: Ordered by: Alana Goncalves MD Report #: [id number] Location: ER Room/Bed: Procedure: [id number] DX/FOREARM LEFT 2 VIEW Exam Date: 07/14/20 Exam Time: 1320 REPORT STATUS: Signed EXAMINATION: SHOULDER LEFT COMPLETE, FOREARM LEFT 2 VIEW, ELBOW LEFT COMPLETE INDICATION: Left shoulder and arm pain COMPARISON: None FINDINGS: Left shoulder: Internal and external rotation views demonstrate no acute fracture or dislocation. Alignment is anatomic. Mild acromioclavicular degenerative changes. Soft tissues appear unremarkable. Left elbow: AP, lateral and oblique images of the left elbow demonstrate contour irregularity at the radial head and likely elbow joint effusion, concerning for acute radial head fracture. Left forearm: AP, lateral and oblique images of the left forearm demonstrate no acute fracture or dislocation. IMPRESSION: Findings concerning for acute minimally displaced radial head fracture with small associated elbow joint effusion. No acute osseous injury of the shoulder or forearm. Signed by: Joe Edwards MD on 07/14/2020 2:09 PM Dictated By: JOE EDWARDS MD 08 Transcribed By: JULIAN on 07/14/201408 COPY TO: ALANA GONCALVES MD ELBOW LEFT COMPLETE 2020-07-14 14:03:00 [facility] : 1955 Sex: [place] [address] Patient Name: GATO BEVERLY MR #: [id number] : 1955 Age/Sex: 64/F Req #: [id number] [facility] Physician: Ordered by: Alana Goncalves MD Report #: [id number] Location: Room/Bed: Procedure: [id number] DX/ELBOW LEFT COMPLETE Exam Date: 07/14/20 Exam Time: 1320 REPORT STATUS: Signed EXAMINATION: SHOULDER LEFT COMPLETE, FOREARM LEFT 2 VIEW, ELBOW LEFT COMPLETE INDICATION: Left shoulder and arm pain COMPARISON: None FINDINGS: Left shoulder: Internal and external rotation views demonstrate no acute fracture or dislocation. Alignment is anatomic. Mild acromioclavicular degenerative changes. Soft tissues appear unremarkable. Left elbow: AP, lateral and oblique images of the left elbow demonstrate contour irregularity at the radial head and likely elbow joint effusion, concerning for acute radial head fracture. Left forearm: AP, lateral and oblique images of the left forearm demonstrate no acute fracture or dislocation. IMPRESSION: Findings concerning for acute minimally displaced radial head fracture with small associated elbow joint effusion. No acute osseous injury of the shoulder or forearm. Signed by: Joe Edwards MD on 07/14/2020 2:09 PM Dictated By: JOE EDWARDS MD 08 Transcribed By: JULIAN on 07/14/201408 COPY TO: ALANA GONCALVES MD SHOULDER LEFT COMPLETE 2020-07-14 14:03:00 [facility] 1955 Sex: [place] [address] Patient Name: GATO BEVERLY MR #: [id number] : 1955 Age/Sex: 64/F Req #: [id number] [facility] Physician: Ordered by: Alana Goncalves MD Report #: [id number] Location: Room/Bed: Procedure: [id number] DX/SHOULDER LEFT COMPLETE Exam Date: 07/14/20 Exam Time: 1320 REPORT STATUS: Signed EXAMINATION: SHOULDER LEFT COMPLETE, FOREARM LEFT 2 VIEW, ELBOW LEFT COMPLETE INDICATION: Left shoulder and arm pain COMPARISON: None FINDINGS: Left shoulder: Internal and external rotation views demonstrate no acute fracture or dislocation. Alignment is anatomic. Mild acromioclavicular degenerative changes. Soft tissues appear unremarkable. Left elbow: AP, lateral and oblique images of the left elbow demonstrate contour irregularity at the radial head and likely elbow joint effusion, concerning for acute radial head fracture. Left forearm: AP, lateral and oblique images of the left forearm demonstrate no acute fracture or dislocation. IMPRESSION: Findings concerning for acute minimally displaced radial head fracture with small associated elbow joint effusion. No acute osseous injury of the shoulder or forearm. Signed by: Joe Edwards MD on 07/14/2020 2:09 PM Dictated By: JOE EDWARDS MD 08 Transcribed By: JULIAN on 07/14/201408 COPY TO: ALANA GONCALVES MD CHEST SINGLE (PORTABLE) 2020-07-14 14:02:00 [facility] 1955 Sex: [place] [address] Patient Name: GATO BEVERLY MR #: [id number] : 1955 Age/Sex: 64/F Req #: [id number] Adm Physician: Ordered by: Alana Goncalves MD Report #: [id number] Location: ER Room/Bed: Procedure: [id number] DX/CHEST SINGLE (PORTABLE) Exam Date: 07/14/20 Exam Time: 1320 REPORT STATUS: Signed EXAMINATION: CHEST SINGLE (PORTABLE) INDICATION: Overdose COMPARISON: Chest radiograph 06/22/2019 FINDINGS: LINES/TUBES:None LUNGS:The lungs are well-inflated. No focal consolidation or pulmonary edema. PLEURA:No pleural effusion or pneumothorax. MEDIASTINUM:The cardiomediastinal silhouette appears normal in size and shape. BONES/SOFT TISSUES:No acute osseous injury. ABDOMEN:No free air under the diaphragm. IMPRESSION: No focal pneumonia or pulmonary edema. Signed by: Joe Edwards MD on 07/14/2020 2:03 PM Dictated By: JOE EDWARDS MD 02 Transcribed By: JULIAN on 07/14/201402 COPY TO: ALANA GONCALVES MD CT BRAIN WO 2020-07-14 13:53:00 [facility] : 1955 Sex: F [facility] [address] [place] [address] Patient Name: GATO BEVERLY MR #: [id number] : 1955 Age/Sex: 64/F Req #: [id number] Adm Physician: Ordered by: Alana Goncalves MD Report #: [id number] Location: Room/Bed: Procedure: [id number] CT/CT BRAIN WO Exam Date: 07/14/20 Exam Time: 1255 REPORT STATUS: Signed CT BRAIN WO HISTORY: Altered mental status COMPARISON: Report from head CT dated 06/23/2017 TECHNIQUE: Noncontrast axial scans were obtained from skull base to the vertex. Coronal and sagittal reconstructions obtained from the axial data. One or more of the following dose reduction techniques were used: Automated exposure control, adjustment of the mA and/or kV according to patient size, and/or utilization of iterative reconstruction technique. Motion artifacts obscure some details. DISCUSSION: Scalp/Skull: Unremarkable. Brain sulci: Appropriate for patient's age. Ventricles: Normal in size and configuration. No hydrocephalus. Extra-axial spaces: No masses or fluid collections. Mild carotid siphon and vertebral artery calcifications are present. Parenchyma: There is slight mild disproportionate cerebellar volume loss. No mass, hemorrhage, or large vascular territory acute infarct. Dural sinuses: No abnormal densities. Sellar/Suprasellar region: Intact. Skull base: Intact. Incidental findings: None. IMPRESSION: 1. No acute intracranial abnormalities. 2. Slight mild disproportionate cerebellar volume loss. Signed by: Dr. Marlon Mendez M.D. on 07/14/2020 1:58 PM Dictated By: MARLON MENDEZ MD [id number] Transcribed By: JULIAN on 07/14/20 7759 COPY TO: ALANA GONCALVES MD - NM MYOCRD SPECT R/S MULT 2019-09-30 08:07:00 FAX: Zoey Burch MD [phone] [place]: St: [facility] FAX: Harjit George MD [phone] Name: GATO BEVERLY [facility] : 1955 Age/S: 63/F [address] Unit #: [id number] Loc: V.[address] [place] [address] Phys: Harjit Michaud MD Acct: [id number] Dis Date: Status: ADM IN PHONE #: [phone] Exam Date: 09/25/2019 1230 FAX #: [phone] Reason: CAD,angina EXAMS: CPT CODE: [id number] NM MYOCRD SPECT R/S MULT [id number] HISTORY: CAD and angina. COMPARISON: None available. Location: [facility]. Stress test: 10.9 mCi of technetium 99m [...] RT(R)(N) Trnscrd Date/Time/By: 09/30/2019 (0807) : By: [email or web address] Orig Print D/T: S: 09/30/2019 (0810) PAGE [...] PHOS) 5.3 mg/dL 2.5-4.9 H RENAL FUNCTION [id number] 07:49:00* Test Item Value Reference Range Interpretation [...] code = PHOS) mg/dL 2.5-4.9 CBC W/O [id number] 07:34:00* Test Item Value Reference Range Interpretation [...] code = MPV) fL 6.7-11.0 CBC W/O [id number] 07:34:00* Test Item Value Reference Range Interpretation [...] code = MPV) 11.0 fL 6.7-11.0 N [id number] 17:11:00* Test Item Value Reference Range Interpretation Comments CKMB (test code = CKMBT) < 1.0 ng/mL 0-6.0 N COMMENTS TO COMMERCIAL INTERN: RIGHT ARM [id number] 17:11:00* Test Item Value Reference Range Interpretation Comments TROPONIN-I (test code = TROPI) <0.015 ng/mL 0-0.045 N COMMENTS TO COMMERCIAL INTERN: RIGHT ARM ALERTBASIC METABOLIC [id number] 08:22:00* Test Item Value Reference Range Interpretation [...] CA) 10.0 mg/dL 8.5-10.1 N BASIC METABOLIC [id number] 08:14:00* Test Item Value Reference Range Interpretation [...] code = CA) mg/dL 8.5-10.1 CBC W/O [id number] 07:52:00* Test Item Value Reference Range Interpretation [...] MPV) 11.1 fL 6.7-11.0 H BASIC METABOLIC [id number] 06:12:00* Test Item Value Reference Range Interpretation [...] CA) 9.6 mg/dL 8.5-10.1 N CBC W/AUTO [id number] 05:19:00* Test Item Value Reference Range Interpretation [...] (test code = MDIFF) NO CBC W/AUTO [id number] 05:17:00* Test Item Value Reference Range Interpretation [...] = BA#) K/mm3 0.0-0.2 - US ABDOMEN [id number] 18:00:00 Name: GATO BEVERLY [facility] : 1955 Age/S: 63 / F [address] Unit #: [id number] Loc: [place], [place] [address] Phys: Harjit Michaud MD Acct: [id number] Dis Date: Status: ADM IN PHONE #: [phone] Exam Date: 09/25/2019 1737 FAX #: [phone] Reason: abdominal pain,indigestion EXAMS: CPT CODE: [id number] US ABDOMEN COMPLETE 55492 REASON FOR EXAM: abdominal pain,indigestion EXAM ORDER DATE: 09/25/2019 12:45 PM Ordering: Harjit Michaud MD Attending:Zoey Bello MD Location:[facility] PROCEDURE: - US ABDOMEN COMPLETE FINDINGS: The [...] Mago Larsen RDMS Trnscb Date/Time: 09/25/2019 (1800) Sharon Orig Print D/T: S: 09/25/2019 (8043) Probe: PAGE 1 Signed Report COMPREHENSIVE METABOLIC [id number] 10:12:00* Test Item Value Reference Range Interpretation [...] range due to change in reagent. CALCIUM [id number] 10:12:00* Test Item Value Reference Range Interpretation Comments CALCIUM IONIZED (test code = ALBAN) 1.48 mmol/L 1.12-1.32 H PARATHYROID HORMONE [id number] 10:12:00* Test Item Value Reference Range Interpretation Comments PARATHYROID HORMONE INTACT (test code = PARAI) 38.80 pgram/mL 8.4-8 8 N VITAMIN D [id number] 10:12:00* Test Item Value Reference Range Interpretation Comments VITAMIN D 25-HYDROXY (test code = VITD25) 56.2 ng/mL 30.0-100.0 Vitamin D deficiency has been defined by the [place] of[employer] and an Endocrine Society practice guideline as alevel of serum 25-OH vitamin D less than 20 ng/mL (1,2).The Endocrine Society went on to further define vitamin Dinsufficiency as a level between 21 and 29 ng/mL (2).1. IOM ([place] of [employer]). 2010. Dietary reference intakes for calcium and D. [place]: The National Academies Press.2. Bridget MF, Carlita MANZO, Olivier SANDERSON, et al. Evaluation, treatment, and prevention of vitamin D deficiency: an Endocrine Society clinical practice guideline. JCEM. 2010; 96(7):1911-30.Performed At: [address] [id number] Barroso MD Ph:[phone] performed at: [address] [address] AB HEPATITIS B [id number] 10:12:00* Test Item Value Reference Range Interpretation Comments AB HEPATITIS B SURFACE (test code = HBSAB) Non Reactive () Non Reactive: Inconsistent with immunity, less than 10 mIU/mL Reactive: Consistent with immunity, greater than 9.9 mIU/mLPerformed At: [address] [id number] Barroso MD Ph:[phone] HEPATITIS B CORE ANTIBODY,[id number] 10:12:00* Test Item Value Reference Range Interpretation Comments HEPATITIS B CORE ANTIBODY,TOT (test code = HBCAB) Negative Nega tive Performed At: [address] [id number] Barroso MD Ph:[phone] COMPREHENSIVE METABOLIC [id number] 12:25:00* Test Item Value Reference Range Interpretation [...] range due to change in reagent. CALCIUM [id number] 12:25:00* Test Item Value Reference Range Interpretation Comments CALCIUM IONIZED (test code = ALBAN) 1.48 mmol/L 1.12-1.32 H PARATHYROID HORMONE [id number] 12:25:00* Test Item Value Reference Range Interpretation Comments PARATHYROID HORMONE INTACT (test code = PARAI) 38.80 pgram/mL 8.4-8 8 N VITAMIN D 82-[id number] 12:25:00* Test Item Value Reference Range Interpretation Comments VITAMIN D 25-HYDROXY (test code = VITD25) ng/mL 30-100 COMPREHENSIVE METABOLIC [id number] 12:16:00* Test Item Value Reference Range Interpretation [...] range due to change in reagent. CALCIUM [id number] 12:16:00* Test Item Value Reference Range Interpretation Comments CALCIUM IONIZED (test code = ALBAN) 1.48 mmol/L 1.12-1.32 H PARATHYROID HORMONE [id number] 12:16:00* Test Item Value Reference Range Interpretation Comments PARATHYROID HORMONE INTACT (test code = PARAI) pgram/mL 8.4-88 VITAMIN D 30-[id number] 12:16:00* Test Item Value Reference Range Interpretation Comments VITAMIN D 25-HYDROXY (test code = VITD25) ng/mL 30-100 COMPREHENSIVE METABOLIC [id number] 12:13:00* Test Item Value Reference Range Interpretation [...] range due to change in reagent. CALCIUM [id number] 12:13:00* Test Item Value Reference Range Interpretation Comments CALCIUM IONIZED (test code = ALBAN) mmol/L 1.12-1.32 PARATHYROID HORMONE [id number] 12:13:00* Test Item Value Reference Range Interpretation Comments PARATHYROID HORMONE INTACT (test code = PARAI) pgram/mL 8.4-88 VITAMIN D 47-[id number] 12:13:00* Test Item Value Reference Range Interpretation Comments VITAMIN D 25-HYDROXY (test code = VITD25) ng/mL 30-100 COMPREHENSIVE METABOLIC [id number] 12:10:00* Test Item Value Reference Range Interpretation [...] (test code = ALKP) IUnit/L 45-117 CALCIUM [id number] 12:10:00* Test Item Value Reference Range Interpretation Comments CALCIUM IONIZED (test code = ALBAN) mmol/L 1.12-1.32 PARATHYROID HORMONE [id number] 12:10:00* Test Item Value Reference Range Interpretation Comments PARATHYROID HORMONE INTACT (test code = PARAI) pgram/mL 8.4-88 VITAMIN D [id number] 12:10:00* Test Item Value Reference Range Interpretation Comments VITAMIN D 25-HYDROXY (test code = VITD25) ng/mL 30-100 [id number] 23:51:00* Test Item Value Reference Range Interpretation Comments TROPONIN-I (test code = TROPI) 0.019 ng/mL 0-0.045 N COMMENTS TO COMMERCIAL INTERN: COLLECT 3 HOURS AFTER PREVIOUS [id number] 21:12:00* Test Item Value Reference Range Interpretation Comments TROPONIN-I (test code = TROPI) 0.018 ng/mL 0-0.045 N COMMENTS TO COMMERCIAL INTERN: COLLECT 3 HOURS AFTER PREVIOUS [id number] 18:07:00* Test Item Value Reference Range Interpretation Comments GLUBED (test code = GLUBED) 92 mg/dL 74-106 N Performed by certified oil pump station operator chief at [facility] AG HEPAT B [id number] 17:46:00* Test Item Value Reference Range Interpretation Comments AG HEPAT B SURF (test code = HBSAG) Nonreactive Index Nonreactive URINALYSIS [id number] 15:22:00* Test Item Value Reference Range Interpretation [...] per HPF NONE Urine Source? Clean CatchURINALYSIS [id number] 14:43:00* Test Item Value Reference Range Interpretation [...] HPF NONE Urine Source? Clean CatchB-TYPE NATRIURETIC [id number] 14:36:00* Test Item Value Reference Range Interpretation Comments B-TYPE NATRIURETIC PEPTIDE (test code = BNP) 41.31 pgram/mL 0-100 N URINALYSIS [id number] 14:24:00* Test Item Value Reference Range Interpretation [...] HPF NONE Urine Source? Clean CatchBASIC METABOLIC [id number] 12:23:00* Test Item Value Reference Range Interpretation [...] CA) 11.0 mg/dL 8.5-10.1 H HEPATIC FUNCTION [id number] 12:23:00* Test Item Value Reference Range Interpretation [...] due to change in reagent. HCG SERUM [id number] 12:23:00* Test Item Value Reference Range Interpretation Comments HCG SERUM QUAL (test code = HCGQL) NEGATIVE NEGATIVE This HCGQL test is NOT applicable for MALE patients.Check with nurse about probable order error.If Tumor Marker Test needed, nurse should order test "HCGTU"(Test #550.94755) [id number] 12:23:00* Test Item Value Reference Range Interpretation Comments TROPONIN-I (test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
--- OUTSIDE RECORDS SUMMARY | 2020-07-14 16:20 | XMS REPORT | Clinical Summary ---
Author Author [facility] Address Unknown Phone Unavailable Care Team Providers Care Bicycle Courier Name Role Phone PCP Unavailable Allergies Not on File Medications Not on file Active Problems Not on file Encounters Care Team Description Date Type Specialty Referred by primary care mathieu naranjo (Primary Dx) 07/14/2020 Orders Only Lab after 07/14/2019 Social History Date Tobacco Use Types Packs/Day Years Used Never Assessed Sex Assigned at Date Recorded Not on file Last Filed Vital Signs Not on file Plan of Treatment Not on file Results Not on fileafter 07/14/2019
[2020-07-14] MEDS ORDERED: COLACE100 MG PO (16:27)
[2020-07-14] MEDS ORDERED: DEXTROSE 50% SYRINGE 50 ML IV PRN (16:45)
[2020-07-14] MEDS: INSULIN REGULAR, HUMAN 100 UNIT/1 ML 3ML VIAL SQ SCH ×2 (16:57→20:56)
[2020-07-14 17:41] VITALS: BP 103/42
[2020-07-14 17:43] VITALS: BP 103/42
--- NOTE | 2020-07-14 18:15 | NUR ---
PATIENT IS REFUSING TO LET THIS NURSE SEE HER LEFT ARM.
--- NOTE | 2020-07-14 19:25 | NUR ---
RECEIVED BEDSIDE SHIFT REPORT FROM PREVIOUS NURSE. CALL LIGHT WITHIN REACH. PATIENT IN BED
--- NOTE | 2020-07-14 19:39 | NUR ---
RECEIVED REPORT FROM JASE GUZMÁN. PATIENT ARRIVED TO THE UNIT @ 1810 VIA WHEELCHAIR. PATIENT IN STABLE CONDITION, NO S/S OF DISTRESS NOTED. RESPIRATIONS EVEN AND NONLABORED. PATIENT ABLE TO VOICED NEEDS. IV SITE ASYMPATHETIC AND PATENT, TRANSPARENT DRESSING C/D/I. SPLIT WITH MARY WRAP NOTED TO THE LEFT ARM WITH A SLING APPLIED. NO PAIN VOICED. BED IN LOWEST POSITION AND LOCKED, SIDE RAILS X2, NONSKID SOCKS. CALL LIGHT WITHIN REACH.
--- NOTE | 2020-07-14 19:45 | NUR ---
COMPLETED BEDSIDE SHIFT REPORT AND ROUNDING WITH ONCOMING NIGHT NURSE. PATIENT IN STABLE CONDITION, NO S/S OF DISTRESS NOTED. RESPIRATIONS EVEN AND NONLABORED. PATIENT ABLE TO VOICED NEEDS. IV SITE ASYMPATHETIC AND PATENT, TRANSPARENT DRESSING C/D/I. SPLIT WITH MARY WRAP NOTED TO THE LEFT ARM WITH A SLING APPLIED. NO PAIN VOICED. BED IN LOWEST POSITION AND LOCKED, SIDE RAILS X2, NONSKID SOCKS. CALL LIGHT WITHIN REACH.
[2020-07-14 19:58] VITALS: BP 124/58
[2020-07-14 20:00] VITALS: BP 124/58
[2020-07-15] VITALS (8 sets, daily range): BP systolic 138–177; BP diastolic 50–70
[2020-07-15] MEDS: SODIUM CHLORIDE 0.9% 1000ML 1,000 ML IV SCH (04:11)
[2020-07-15 05:25] LABS: BASOPHILS # (AUTO) 0.1 (0.0-0.1); BASOPHILS % 0.4 % (0.0-1.0); EOSINOPHILS # (AUTO) 0.3 (0.0-0.4); EOSINOPHILS % 2.4 % (0.0-6.0); HEMOGLOBIN 11.8 g/dL (12.0-16.0); LYMPHOCYTES % 16.4 % (18.0-39.1); MEAN CORPUSCULAR HEMOGLOBIN 29.1 pg (28-32); MEAN CORPUSCULAR HGB CONC 31.1 g/dL (31-35); MEAN CORPUSCULAR VOLUME 93.8 fL (81-99); MONOCYTES # (AUTO) 1.1 (0.2-0.8); MONOCYTES % 9.1 % (4.4-11.3); NEUTROPHILS # (AUTO) 8.7 (2.1-6.9); NEUTROPHILS % 70.7 % (38.7-80.0); PLATELET COUNT 203 x10e3/uL (140-360); RED BLOOD COUNT 4.05 x10e6/uL (3.6-5.1)
[2020-07-15 05:55] LABS: ANION GAP 18.3 mmol/L (8-16); CALCIUM 8.4 mg/dL (8.4-10.2); CREATININE, SERUM 5.39 mg/dL (0.57-1.11); POTASSIUM 4.3 mmol/L (3.5-5.1)
--- NOTE | 2020-07-15 07:00 | NUR ---
RECEIVED BEDSIDE SHIFT REPORT WITH OFF GOING NIGHT NURSE. PATIENT IN STABLE CONDITION, NO S/S OF DISTRESS NOTED. RESPIRATIONS EVEN AND NONLABORED. PATIENT ABLE TO VOICED NEEDS. IV SITE ASYMPTOMATIC AND PATENT, TRANSPARENT DRESSING C/D/I. SPLIT WITH MARY WRAP NOTED TO THE LEFT ARM WITH A SLING APPLIED. NO PAIN VOICED. BED IN LOWEST POSITION AND LOCKED, SIDE RAILS X2, NONSKID SOCKS. CALL LIGHT WITHIN REACH.
[2020-07-15] MEDS: INSULIN REGULAR, HUMAN 100 UNIT/1 ML 3ML VIAL SQ SCH ×4 (07:30→21:09)
--- NOTE | 2020-07-15 07:30 | NUR ---
GAVE BEDSIDE SHIFT TO ONCOMING NURSE. CALL LIGHT WITHIN REACH. PATIENT IN BED. HOURLY ROUNDING PERFORMED.
--- NOTE | 2020-07-15 09:56 | NUR ---
EDUCATED ABOUT IMM, SIGNED, FILED IN CHART, WITH COPY LEFT WITH FAMILY AT BEDSIDE.
--- NOTE | 2020-07-15 10:00 | NUR ---
ROUNDED ON THE PATIENT.
[2020-07-15] MEDS ORDERED: ASPIRIN81 MG PO (11:53)
[2020-07-15] MEDS ORDERED: COLACE100 MG PO (11:53)
[2020-07-15] MEDS: LABETALOL HCL 100 MG TAB PO SCH ×2 (14:32→20:48)
--- NOTE | 2020-07-15 16:24 | NUR ---
CALLED DIALYSIS TO SET UP THE PATIENT FOR DIALYSIS ON Sunday07/16/20.
[2020-07-15] MEDS ORDERED: ASPIRIN 325 MG TAB EC PO SCH (17:00)
[2020-07-15] MEDS ORDERED: ASPIRIN 325 MG PO SCH (17:00)
[2020-07-15] MEDS: ACETAMINOPHEN 325 MG TAB PO PRN (17:15)
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
--- NOTE | 2020-07-15 19:00 | NUR ---
WALKING ROUNDS PERFORMED, RECEIVED PT LAYING SEMI FOWLERS IN BED, AAOX3, RR EVEN AND NON-LABORED, ON ROOM AIR. (L) ARM IN SLING WITH SPLINT AND MARY WRAP FROM HAND TO UPPER ARM. REPOSITIONED PT IN BED FOR COMFORT. LEFT PT LAYING SEMI FOWLERS IN BED, BED IN LOW LOCKED POSITION, SIDE RAILS UPX2, CALL LIGHT AND PHONE WITHIN REACH.
--- NOTE | 2020-07-15 19:12 | NUR ---
COMPLETED BEDSIDE SHIFT REPORT AND ROUNDING WITH ONCOMING NIGHT NURSE. PATIENT IN STABLE CONDITION, NO S/S OF DISTRESS NOTED. RESPIRATIONS EVEN AND NONLABORED. PATIENT ABLE TO VOICED NEEDS. IV SITE ASYMPTOMATIC AND PATENT, TRANSPARENT DRESSING C/D/I. SPLIT WITH MARY WRAP TO THE LEFT ARM WITH A SLING APPLIED. NO PAIN VOICED. SISTER AT BEDSIDE. BED IN LOWEST POSITION AND LOCKED, SIDE RAILS X2, NONSKID SOCKS APPLIED. CALL LIGHT WITHIN REACH.
[2020-07-15] MEDS: PRAVASTATIN 20 MG TAB PO SCH (20:47)
[2020-07-15] MEDS: BENZTROPINE MESYLATE 1 MG TAB PO SCH (20:47)
[2020-07-15] MEDS: DILTIAZEM HCL ER 120 MG CAP PO SCH (20:47)
[2020-07-15] MEDS ORDERED: PRAVASTATIN SODIUM 40 MG PO SCH (21:00)
[2020-07-15] MEDS ORDERED: DILTIAZEM HCL 240 MG PO SCH (21:00)
[2020-07-16] VITALS (8 sets, daily range): BP systolic 91–171; BP diastolic 54–66
[2020-07-16] MEDS: INSULIN REGULAR, HUMAN 100 UNIT/1 ML 3ML VIAL SQ SCH ×4 (08:30→22:55)
[2020-07-16] MEDS ORDERED: DOCUSATE SODIUM 100 MG CAP PO SCH (09:00)
[2020-07-16] MEDS ORDERED: RISPERIDONE 3 MG PO SCH (09:00)
[2020-07-16] MEDS: ALLOPURINOL 100 MG TAB PO SCH (09:00)
[2020-07-16] MEDS: LABETALOL HCL 100 MG TAB PO SCH ×3 (09:00→21:57)
[2020-07-16] MEDS ORDERED: SODIUM CHLORIDE 0.9% 1000ML 2,000 ML ONE (09:10)
[2020-07-16] MEDS: DOCUSATE SODIUM 100 MG CAP PO SCH (09:27)
[2020-07-16] MEDS: ASPIRIN 81 MG CHEW TAB PO SCH (09:27)
[2020-07-16] MEDS: RISPERIDONE 1 MG TAB PO SCH (09:27)
[2020-07-16] MEDS: CALCITRIOL 0.25 MCG CAP PO SCH (09:27)
[2020-07-16] MEDS: BUPROPION HCL 75 MG TAB PO SCH (09:28)
--- NOTE | 2020-07-16 09:28 | NUR ---
DIALYSIS NURSE PRESENT AT BEDSIDE PREPARING TO INITIATE DIALYSIS TREATMENT.
[2020-07-16] MEDS: ACETAMINOPHEN 325 MG TAB PO PRN (13:12)
[2020-07-16] MEDS: PRAVASTATIN 20 MG TAB PO SCH (21:56)
[2020-07-16] MEDS: DILTIAZEM HCL ER 120 MG CAP PO SCH (21:56)
[2020-07-16] MEDS: BENZTROPINE MESYLATE 1 MG TAB PO SCH (21:56)
[2020-07-17] VITALS (7 sets, daily range): BP systolic 101–150; BP diastolic 51–68
[2020-07-17] MEDS: ACETAMINOPHEN 325 MG TAB PO PRN (00:56)
--- NOTE | 2020-07-17 07:00 | NUR ---
ASSUMED CARE. AWAKE AND ALERT. ACYANOTIC. NO DISTRESS NOTED. CALL LIGHT IN REACH. SIDE RAILS UP X2. BED LOW AND LOCKED.
[2020-07-17] MEDS: INSULIN REGULAR, HUMAN 100 UNIT/1 ML 3ML VIAL SQ SCH ×4 (07:30→21:00)
[2020-07-17] MEDS: DOCUSATE SODIUM 100 MG CAP PO SCH (08:47)
[2020-07-17] MEDS: BUPROPION HCL 75 MG TAB PO SCH (08:47)
[2020-07-17] MEDS: LABETALOL HCL 100 MG TAB PO SCH ×3 (08:47→21:59)
[2020-07-17] MEDS: RISPERIDONE 1 MG TAB PO SCH (08:47)
[2020-07-17] MEDS: ASPIRIN 81 MG CHEW TAB PO SCH (08:47)
[2020-07-17] MEDS: CALCITRIOL 0.25 MCG CAP PO SCH (08:47)
[2020-07-17] MEDS: ALLOPURINOL 100 MG TAB PO SCH (08:47)
--- NOTE | 2020-07-17 13:38 | Progress Note ---
DATE: Renal Progress Note SUBJECTIVE: Events over the past 24 hours have been noted. The patient has no complaints. No chest pain. No shortness of breath. She is undergoing dialysis at this time. PHYSICAL EXAMINATION: VITAL SIGNS: Blood pressure 122/53, pulse 80, respirations 16. GENERAL: The patient is obese. No acute distress. HEENT: No increased JVD. CARDIOVASCULAR: Regular rate and rhythm. LUNGS: Decreased breath sounds bilaterally. ABDOMEN: Positive bowel sounds. Nontender, nondistended. EXTREMITIES: No edema, cyanosis, or clubbing. The patient has left arm with sling. The patient has an AV graft in the right arm. LABORATORY RESULTS: No new labs from today. IMPRESSION: 1. Chronic kidney disease stage 5. 2. Right elbow fracture. PLAN: The patient is undergoing dialysis at this time with a 3 potassium, 2.5 calcium. We will dialyze for 2 hours to keep her on her Sunday, , Sunday schedule. We will ultrafilter about maybe 2 L. The patient was also dialyzed yesterday. The patient is doing well. Ather MD GEE Nevarez/JENNIFER /[id number]
--- NOTE | 2020-07-17 20:12 | NUR ---
RECEIVED . PATIENT IN BED AOX3 . RESPIRATIONS EVEN AND UNLABORED. PATIENT ABLE TO VOICED NEEDS. THE LEFT ARM WITH A SLING . NO PAIN VOICED. BED IN LOWEST POSITION AND LOCKED, CALL LIGHT WITHIN REACH
[2020-07-17] MEDS: PRAVASTATIN 20 MG TAB PO SCH (21:59)
[2020-07-17] MEDS: BENZTROPINE MESYLATE 1 MG TAB PO SCH (21:59)
[2020-07-17] MEDS: DILTIAZEM HCL ER 120 MG CAP PO SCH (21:59)
[2020-07-18 01:31] VITALS: BP 104/66
--- NOTE | 2020-07-18 05:30 | NUR ---
PT RESTED DURING THE NIGHT ,DENIES PAIN ,CALL LIGHT WITH IN REACH
[2020-07-18 06:15] VITALS: BP 105/63
--- NOTE | 2020-07-18 07:08 | NUR ---
GIVEN BEDSIDE SHIFT REPORT TO ONCOMING NURSE. CALL LIGHT WITHIN REACH. PATIENT IN BED. HOURLY ROUNDING DONE
[2020-07-18] MEDS: INSULIN REGULAR, HUMAN 100 UNIT/1 ML 3ML VIAL SQ SCH ×2 (07:30→12:40)
--- NOTE | 2020-07-18 07:53 | NUR ---
Met with Dr. Genevieve Bello. He ordered SNF for pt.
[2020-07-18 07:55] VITALS: BP 107/52
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
[2020-07-18 08:13] VITALS: BP 107/52
[2020-07-18] MEDS: RISPERIDONE 1 MG TAB PO SCH (08:48)
[2020-07-18] MEDS: LABETALOL HCL 100 MG TAB PO SCH (08:48)
[2020-07-18] MEDS: CALCITRIOL 0.25 MCG CAP PO SCH (08:48)
[2020-07-18] MEDS: ALLOPURINOL 100 MG TAB PO SCH (08:48)
[2020-07-18] MEDS: ASPIRIN 81 MG CHEW TAB PO SCH (08:48)
[2020-07-18] MEDS: DOCUSATE SODIUM 100 MG CAP PO SCH (08:48)
[2020-07-18] MEDS: BUPROPION HCL 75 MG TAB PO SCH (08:48)
--- NOTE | 2020-07-18 09:19 | NUR ---
Met with patient and discussed SNF order. She stated Dr. Bello and discussed with her as well. She signed choice letter with initials. Stated she is unable to write. [place] [address] [place] [address] fax: [phone] called facility, and they are accepting new patients at this time. Will fax clinicals
[2020-07-18 11:55] VITALS: BP 130/65
--- NOTE | 2020-07-18 13:17 | NUR ---
BOBBY FROM [facility] CALLED W/ ACCEPTANCE OF PT. RTF INITIATED AND GIVEN TO Genevieve MONGE RN, AND HE WILL CALL DR. Genevieve FERNÁNDEZ FOR DC ORDER.
--- NOTE | 2020-07-18 13:32 | NUR ---
ANGÉLICA CALLED AND SPOKE WITH BOBBY AT [facility] TO BE SURE THEY DID NOTICE THAT PT IS DIALYSIS PT MONIKA VAZQUEZ, LESLEE. BOBBY STATED THEY WERE AWARE. NOTIFIED LESLIE MONGE RN
--- NOTE | 2020-07-18 14:12 | Progress Note ---
DATE: 07/18/2020 Renal Progress Note SUBJECTIVE: Events of the past 24 hours have been noted. The patient has no complaints and she was sleeping when I walked in the room. She is easily arousable and talkative. She had her lunch plate in front of her, but she states she did not like the main meal. She only ate a little bit of the potato. PHYSICAL EXAMINATION: VITAL SIGNS: Blood pressure 130/65, pulse 57, respiration 18. GENERAL: The patient is obese. HEENT: No increased JVD. CARDIOVASCULAR: Regular rate and rhythm. LUNGS: Clear to auscultation bilaterally. ABDOMEN: Positive bowel sounds. Nontender, nondistended. No rebound. No guarding. EXTREMITIES: Trace edema of the legs. The left arm is in a sling. The patient has an AV graft in the right upper arm. LABORATORY RESULTS: No new labs from today. IMPRESSION: 1. Chronic kidney disease, stage 5. 2. Right elbow fracture. 3. Hypertension. 4. Secondary hyperparathyroidism. PLAN: The patient underwent dialysis yesterday and also the day before. The patient is actually on a Sunday, , Sunday schedule. Next dialysis will be on Sunday. Blood pressure is well controlled on her present medications. She is on calcitriol for the 0.25 mcg once a day for the secondary hyperparathyroidism. Ather MD GEE Nevarez/JENNIFER /[id number]
[2020-07-18 16:09] VITALS: BP 145/62
== END 2020-07-18 16:35 | DRG 682 ==
LOC: ER 12:37 → ERHOLD 16:15 → MED/SURG 17:10 → OBSVTOIN 07-15 09:47
PROC: 5A1D70Z Performance of Urinary Filtration, Intermittent, Less than 6 Hours Per Day (ICD-10-PCS; principal; 2020-07-16)
DX: I12.0 Hypertensive chronic kidney disease with stage 5 chronic kidney disease or end stage renal disease (principal); N18.6 End stage renal disease; S42.401A Unspecified fracture of lower end of right humerus, initial encounter for closed fracture; E11.22 Type 2 diabetes mellitus with diabetic chronic kidney disease; Z99.2 Dependence on renal dialysis; Z79.899 Other long term (current) drug therapy; G47.33 Obstructive sleep apnea (adult) (pediatric); Y04.0XXA Assault by unarmed brawl or fight, initial encounter; F31.9 Bipolar disorder, unspecified; M17.0 Bilateral primary osteoarthritis of knee; E21.3 Hyperparathyroidism, unspecified; Z20.828 Contact with and (suspected) exposure to other viral communicable diseases
CPT/HCPCS: 36415; 70450; 71045; 80048; 80053; 80307; 80320; 80329; 81001; 82550; 82948; 84443; 85025; 85610; 85730; 86705; 86706; 87340; 87400; 93005; 99284; G0378; J1817; J7030; U0002

== ENCOUNTER 2020-07-25 19:59 | Emergency (ER) | payer MEDICARE, BC ==
[~2020-07-25] VITALS: Ht 170.2 cm; Wt 82.1 kg
[~2020-07-25 19:59] MED LIST changes: +ASPIRIN81 MG PO; +COLACE100 MG PO
[2020-07-26 00:15] VITALS: BP 157/93
[2020-07-27] MEDS ORDERED: HUMULIN R100 UNIT/2 (09:54)
== END 2020-07-26 00:17 ==
LOC: ER 20:10
DX: S06.0X0A Concussion without loss of consciousness, initial encounter (principal); W18.30XA Fall on same level, unspecified, initial encounter; Y92.128 Other place in nursing home as the place of occurrence of the external cause; I10 Essential (primary) hypertension; E11.9 Type 2 diabetes mellitus without complications; F31.9 Bipolar disorder, unspecified; G47.30 Sleep apnea, unspecified; I25.2 Old myocardial infarction
CPT/HCPCS: 70450; 71045; 72125; 72170; 99284

== ENCOUNTER 2020-07-26 12:36 | Inpatient (IN) | payer MEDICARE, BC ==
[~2020-07-26] VITALS: Ht 170.2 cm; Wt 85.0 kg
[2020-07-26] MEDS ORDERED: MIDAZOLAM HCL 2 MG/2 ML VIAL ONE (13:30)
[2020-07-26] MEDS ORDERED: LIDOCAINE HCL 2% LOCAL 20 ML VIAL ONE (13:31)
[2020-07-26] MEDS ORDERED: IOPAMIDOL 370 MG/ML 200 ML INFUS..BTL INJ ONE (13:31)
[2020-07-26] MEDS ORDERED: SODIUM CHLORIDE 0.9% 1000ML 0 ML ONE (13:31)
[2020-07-26] MEDS ORDERED: FENTANYL CITRATE/PF 100MCG/2 ML INJ ONE (13:31)
[2020-07-26] MEDS ORDERED: HEPARIN SOD/SOD CHLORIDE 0 ML ONE (13:31)
[2020-07-26 14:09] LABS: BASOPHILS # (AUTO) 0.1 (0.0-0.1); BASOPHILS % 0.4 % (0.0-1.0); EOSINOPHILS # (AUTO) 0.3 (0.0-0.4); EOSINOPHILS % 1.2 % (0.0-6.0); HEMATOCRIT 30.2 % (34.2-44.1); HEMOGLOBIN 9.4 g/dL (12.0-16.0); LYMPHOCYTES # (AUTO) 1.5 (1.0-3.2); MEAN CORPUSCULAR HEMOGLOBIN 28.9 pg (28-32); MEAN CORPUSCULAR HGB CONC 31.1 g/dL (31-35); MEAN CORPUSCULAR VOLUME 92.9 fL (81-99); MONOCYTES # (AUTO) 1.8 (0.2-0.8); NEUTROPHILS # (AUTO) 20.8 (2.1-6.9); NEUTROPHILS % 81.6 % (38.7-80.0); PLATELET COUNT 290 x10e3/uL (140-360); RED BLOOD COUNT 3.25 x10e6/uL (3.6-5.1); RED CELL DISTRIBUTION WIDTH 14.1 % (11.7-14.4)
[2020-07-26] MEDS: LEVOFLOXACIN 750MG/D5W 150ML 150 ML IV SCH (14:33)
[2020-07-26 14:51] LABS: ALBUMIN 1.8 g/dL (3.5-5.0); ALBUMIN/GLOBULIN RATIO 0.5 (0.8-2.0); ANION GAP 15.9 mmol/L (8-16); CREATININE, SERUM 5.11 mg/dL (0.57-1.11); POTASSIUM 3.9 mmol/L (3.5-5.1)
[2020-07-26] MEDS ORDERED: ASPIRIN 81 MG CHEW TAB PO ONE ×2 (16:00→16:45)
[2020-07-26 16:09] LABS: CREATINE KINASE MB 3.6 ng/mL (0-5.0)
[2020-07-26 18:58] LABS: CREATINE KINASE MB 3.8 ng/mL (0-5.0)
[2020-07-26 19:30] VITALS: BP 112/97
[2020-07-26 20:00] VITALS: BP 112/97
[2020-07-26 21:30] VITALS: BP 112/97
[2020-07-27] VITALS (9 sets, daily range): BP systolic 66–141; BP diastolic 36–71
[2020-07-27 00:54] LABS: CREATINE KINASE MB 3.6 ng/mL (0-5.0)
[2020-07-27 07:13] LABS: BASOPHILS # (AUTO) 0.1 (0.0-0.1); BASOPHILS % 0.3 % (0.0-1.0); EOSINOPHILS # (AUTO) 0.2 (0.0-0.4); HEMATOCRIT 30.6 % (34.2-44.1); HEMOGLOBIN 9.4 g/dL (12.0-16.0); LYMPHOCYTES # (AUTO) 1.7 (1.0-3.2); LYMPHOCYTES % 7.7 % (18.0-39.1); MEAN CORPUSCULAR HEMOGLOBIN 29.5 pg (28-32); MEAN CORPUSCULAR HGB CONC 30.7 g/dL (31-35); MEAN CORPUSCULAR VOLUME 95.9 fL (81-99); MONOCYTES # (AUTO) 2.1 (0.2-0.8); MONOCYTES % 9.5 % (4.4-11.3); NEUTROPHILS # (AUTO) 16.7 (2.1-6.9); NEUTROPHILS % 76.1 % (38.7-80.0); PLATELET COUNT 263 x10e3/uL (140-360); RED BLOOD COUNT 3.19 x10e6/uL (3.6-5.1); RED CELL DISTRIBUTION WIDTH 14.2 % (11.7-14.4)
[2020-07-27 07:25] LABS: ALBUMIN 1.7 g/dL (3.5-5.0); ALBUMIN/GLOBULIN RATIO 0.4 (0.8-2.0); ANION GAP 14.3 mmol/L (8-16); CREATININE, SERUM 5.44 mg/dL (0.57-1.11); POTASSIUM 4.3 mmol/L (3.5-5.1)
[2020-07-27 08:39] LABS: EOSINOPHILS % (MANUAL) 1 % (0-7); LYMPHOCYTES % (MANUAL) 10 % (19-48); MONOCYTES % (MANUAL) 13 % (3.4-9.0); NEUTROPHILS % (MANUAL) 75 % (40-74); PROMYELOCYTES % (MANUAL) 1 % (0-0)
[2020-07-27 08:41] LABS: PLATELET ESTIMATE ADEQUATE; PLATELET MORPHOLOGY COMMENT NORMAL
[2020-07-27 08:42] LABS: RBC MORPHOLOGY COMMENT NORMAL
[2020-07-27] MEDS: LEVOFLOXACIN 750MG/D5W 150ML 150 ML IV SCH (09:07)
[2020-07-27] MEDS ORDERED: SODIUM CHLORIDE 0.9% 250ML 250 ML ONE ×2 (09:19→21:08)
[2020-07-27] MEDS ORDERED: HUMULIN R100 UNIT/2 (09:54)
[2020-07-27 11:17] LABS: CREATINE KINASE MB 2.5 ng/mL (0-5.0)
[2020-07-27] MEDS ORDERED: SODIUM CHLORIDE 0.9% 1000ML 2,000 ML ONE (11:37)
[2020-07-27] MEDS ORDERED: DEXTROSE 50% SYRINGE 50 ML IV PRN (18:00)
[2020-07-27] MEDS ORDERED: CEFEPIME 1GM/NS 0.9% 50 ML 50 ML IV ONE (20:00)
[2020-07-27] MEDS ORDERED: VANCOMYCIN 1GM/NS 250 ML 250 ML IV ONE (20:30)
[2020-07-27] MEDS: INSULIN REGULAR, HUMAN 100 UNIT/1 ML 3ML VIAL SQ SCH (20:50)
[2020-07-27] MEDS: SIMVASTATIN 20 MG TAB PO SCH (21:00)
[2020-07-27] MEDS: BENZTROPINE MESYLATE 1 MG TAB PO SCH (21:00)
[2020-07-27] MEDS: LABETALOL HCL 100 MG TAB PO SCH (21:00)
[2020-07-27] MEDS: DILTIAZEM HCL ER 120 MG CAP PO SCH (21:00)
[2020-07-28] VITALS (7 sets, daily range): BP systolic 106–136; BP diastolic 52–71
[2020-07-28 07:21] LABS: BASOPHILS # (AUTO) 0.1 (0.0-0.1); BASOPHILS % 0.5 % (0.0-1.0); EOSINOPHILS # (AUTO) 0.3 (0.0-0.4); EOSINOPHILS % 1.5 % (0.0-6.0); HEMATOCRIT 30.5 % (34.2-44.1); HEMOGLOBIN 9.6 g/dL (12.0-16.0); LYMPHOCYTES # (AUTO) 1.6 (1.0-3.2); LYMPHOCYTES % 7.7 % (18.0-39.1); MEAN CORPUSCULAR HEMOGLOBIN 29.3 pg (28-32); MEAN CORPUSCULAR HGB CONC 31.5 g/dL (31-35); MONOCYTES # (AUTO) 2.1 (0.2-0.8); MONOCYTES % 10.3 % (4.4-11.3); NEUTROPHILS % 72.6 % (38.7-80.0); PLATELET COUNT 293 x10e3/uL (140-360); RED BLOOD COUNT 3.28 x10e6/uL (3.6-5.1); RED CELL DISTRIBUTION WIDTH 14.2 % (11.7-14.4)
[2020-07-28 07:29] LABS: INR 1.24; PROTHROMBIN TIME 16.2 seconds (11.9-14.5)
[2020-07-28 07:30] LABS: PARTIAL THROMBOPLASTIN TIME 41.2 seconds (23.8-35.5)
[2020-07-28] MEDS: INSULIN REGULAR, HUMAN 100 UNIT/1 ML 3ML VIAL SQ SCH ×4 (07:30→21:00)
[2020-07-28 07:38] LABS: ANION GAP 13.3 mmol/L (8-16); CALCIUM 8.2 mg/dL (8.4-10.2); CREATININE, SERUM 3.94 mg/dL (0.57-1.11); POTASSIUM 4.3 mmol/L (3.5-5.1)
[2020-07-28] MEDS: ASPIRIN 81 MG CHEW TAB PO SCH (08:18)
[2020-07-28] MEDS: ALLOPURINOL 100 MG TAB PO SCH (08:18)
[2020-07-28] MEDS: DOCUSATE SODIUM 100 MG CAP PO SCH (08:18)
[2020-07-28] MEDS: BUPROPION HCL 75 MG TAB PO SCH (08:18)
[2020-07-28] MEDS: LABETALOL HCL 100 MG TAB PO SCH ×3 (08:18→21:00)
[2020-07-28] MEDS: RISPERIDONE 1 MG TAB PO SCH (08:18)
[2020-07-28 10:25] LABS: EOSINOPHILS % (MANUAL) 1 % (0-7); LYMPHOCYTES % (MANUAL) 12 % (19-48); MONOCYTES % (MANUAL) 17 % (3.4-9.0); NEUTROPHILS % (MANUAL) 69 % (40-74); PLATELET ESTIMATE ADEQUATE; PROMYELOCYTES % (MANUAL) 1 % (0-0); RBC MORPHOLOGY COMMENT NORMAL
[2020-07-28 10:26] LABS: PLATELET MORPHOLOGY COMMENT NORMAL
[2020-07-28] MEDS: CEFTRIAXONE SOD 1 GM/NS 50 ML 50 ML IV SCH (16:14)
[2020-07-28] MEDS: SIMVASTATIN 20 MG TAB PO SCH (21:00)
[2020-07-28] MEDS: DILTIAZEM HCL ER 120 MG CAP PO SCH (21:00)
[2020-07-28] MEDS: BENZTROPINE MESYLATE 1 MG TAB PO SCH (21:00)
[2020-07-29] VITALS (8 sets, daily range): BP systolic 106–147; BP diastolic 44–68
[2020-07-29] MEDS: INSULIN REGULAR, HUMAN 100 UNIT/1 ML 3ML VIAL SQ SCH ×4 (07:30→21:00)
[2020-07-29] MEDS: DOCUSATE SODIUM 100 MG CAP PO SCH (08:25)
[2020-07-29] MEDS: BUPROPION HCL 75 MG TAB PO SCH (08:25)
[2020-07-29] MEDS: ASPIRIN 81 MG CHEW TAB PO SCH (08:25)
[2020-07-29] MEDS: LABETALOL HCL 100 MG TAB PO SCH ×3 (08:25→21:31)
[2020-07-29] MEDS: ALLOPURINOL 100 MG TAB PO SCH (08:25)
[2020-07-29] MEDS: RISPERIDONE 1 MG TAB PO SCH (08:25)
[2020-07-29] MEDS ORDERED: SODIUM CHLORIDE 0.9% 1000ML 2,000 ML ONE (13:44)
[2020-07-29] MEDS ORDERED: LEVOFLOXACIN 500MG/D5W 100ML 100 ML IV SCH (18:00)
[2020-07-29] MEDS: CEFTRIAXONE SOD 1 GM/NS 50 ML 50 ML IV SCH (18:35)
[2020-07-29] MEDS: DILTIAZEM HCL ER 120 MG CAP PO SCH (21:00)
[2020-07-29] MEDS: SIMVASTATIN 20 MG TAB PO SCH (21:00)
[2020-07-29] MEDS: BENZTROPINE MESYLATE 1 MG TAB PO SCH (21:30)
[2020-07-30] VITALS (8 sets, daily range): BP systolic 100–143; BP diastolic 52–63
[2020-07-30] MEDS: INSULIN REGULAR, HUMAN 100 UNIT/1 ML 3ML VIAL SQ SCH ×4 (07:30→21:00)
[2020-07-30] MEDS: DOCUSATE SODIUM 100 MG CAP PO SCH (10:22)
[2020-07-30] MEDS: RISPERIDONE 1 MG TAB PO SCH (10:22)
[2020-07-30] MEDS: LABETALOL HCL 100 MG TAB PO SCH ×3 (10:22→21:00)
[2020-07-30] MEDS: ASPIRIN 81 MG CHEW TAB PO SCH (10:22)
[2020-07-30] MEDS: ALLOPURINOL 100 MG TAB PO SCH (10:23)
[2020-07-30] MEDS: BUPROPION HCL 75 MG TAB PO SCH (10:23)
[2020-07-30] MEDS: CEFTRIAXONE SOD 1 GM/NS 50 ML 50 ML IV SCH (15:28)
[2020-07-30] MEDS: BENZTROPINE MESYLATE 1 MG TAB PO SCH (21:24)
[2020-07-30] MEDS: SIMVASTATIN 20 MG TAB PO SCH (21:24)
[2020-07-30] MEDS: DILTIAZEM HCL ER 120 MG CAP PO SCH (21:24)
[2020-07-31] VITALS (7 sets, daily range): BP systolic 117–138; BP diastolic 48–63
[2020-07-31] MEDS: INSULIN REGULAR, HUMAN 100 UNIT/1 ML 3ML VIAL SQ SCH ×4 (07:30→20:30)
[2020-07-31] MEDS: DOCUSATE SODIUM 100 MG CAP PO SCH (08:23)
[2020-07-31] MEDS: BUPROPION HCL 75 MG TAB PO SCH (08:23)
[2020-07-31] MEDS: ALLOPURINOL 100 MG TAB PO SCH (08:23)
[2020-07-31] MEDS: ASPIRIN 81 MG CHEW TAB PO SCH (08:23)
[2020-07-31] MEDS: RISPERIDONE 1 MG TAB PO SCH (08:23)
[2020-07-31] MEDS: LABETALOL HCL 100 MG TAB PO SCH ×3 (09:00→20:48)
[2020-07-31] MEDS ORDERED: SODIUM CHLORIDE 0.9% 1000ML 2,000 ML ONE (10:00)
[2020-07-31 14:42] LABS: BASOPHILS # (AUTO) 0.1 (0.0-0.1); BASOPHILS % 0.6 % (0.0-1.0); EOSINOPHILS # (AUTO) 0.5 (0.0-0.4); EOSINOPHILS % 2.6 % (0.0-6.0); HEMATOCRIT 33.4 % (34.2-44.1); HEMOGLOBIN 10.2 g/dL (12.0-16.0); LYMPHOCYTES # (AUTO) 1.6 (1.0-3.2); MEAN CORPUSCULAR HEMOGLOBIN 28.4 pg (28-32); MEAN CORPUSCULAR HGB CONC 30.5 g/dL (31-35); MONOCYTES # (AUTO) 1.2 (0.2-0.8); NEUTROPHILS % 74.2 % (38.7-80.0); PLATELET COUNT 359 x10e3/uL (140-360); RED BLOOD COUNT 3.59 x10e6/uL (3.6-5.1); RED CELL DISTRIBUTION WIDTH 14.2 % (11.7-14.4)
[2020-07-31] MEDS: CEFTRIAXONE SOD 1 GM/NS 50 ML 50 ML IV SCH (16:58)
[2020-07-31] MEDS: DILTIAZEM HCL ER 120 MG CAP PO SCH (20:39)
[2020-07-31] MEDS: SIMVASTATIN 20 MG TAB PO SCH (20:39)
[2020-07-31] MEDS: BENZTROPINE MESYLATE 1 MG TAB PO SCH (20:39)
[2020-08-01] VITALS (8 sets, daily range): BP systolic 103–132; BP diastolic 50–73
[2020-08-01] MEDS: INSULIN REGULAR, HUMAN 100 UNIT/1 ML 3ML VIAL SQ SCH ×4 (07:30→21:00)
[2020-08-01] MEDS: ASPIRIN 81 MG CHEW TAB PO SCH (08:55)
[2020-08-01] MEDS: DOCUSATE SODIUM 100 MG CAP PO SCH (08:55)
[2020-08-01] MEDS: BUPROPION HCL 75 MG TAB PO SCH (08:55)
[2020-08-01] MEDS: RISPERIDONE 1 MG TAB PO SCH (08:55)
[2020-08-01] MEDS: LABETALOL HCL 100 MG TAB PO SCH ×3 (08:55→21:00)
[2020-08-01] MEDS: ALLOPURINOL 100 MG TAB PO SCH (08:55)
[2020-08-01] MEDS: CEFTRIAXONE SOD 1 GM/NS 50 ML 50 ML IV SCH (16:16)
[2020-08-01] MEDS: BENZTROPINE MESYLATE 1 MG TAB PO SCH (22:50)
[2020-08-01] MEDS: DILTIAZEM HCL ER 120 MG CAP PO SCH (22:50)
[2020-08-01] MEDS: SIMVASTATIN 20 MG TAB PO SCH (22:50)
[2020-08-02] VITALS (8 sets, daily range): BP systolic 106–136; BP diastolic 53–73
[2020-08-02 06:44] LABS: ANION GAP 14.6 mmol/L (8-16); CALCIUM 8.2 mg/dL (8.4-10.2); CREATININE, SERUM 3.92 mg/dL (0.57-1.11); POTASSIUM 5.6 mmol/L (3.5-5.1)
[2020-08-02 07:20] LABS: BASOPHILS # (AUTO) 0.1 (0.0-0.1); BASOPHILS % 0.6 % (0.0-1.0); EOSINOPHILS # (AUTO) 0.5 (0.0-0.4); HEMATOCRIT 31.9 % (34.2-44.1); HEMOGLOBIN 9.6 g/dL (12.0-16.0); LYMPHOCYTES # (AUTO) 1.7 (1.0-3.2); LYMPHOCYTES % 10.2 % (18.0-39.1); MEAN CORPUSCULAR HEMOGLOBIN 29.3 pg (28-32); MEAN CORPUSCULAR HGB CONC 30.1 g/dL (31-35); MEAN CORPUSCULAR VOLUME 97.3 fL (81-99); MONOCYTES # (AUTO) 1.2 (0.2-0.8); MONOCYTES % 7.3 % (4.4-11.3); NEUTROPHILS # (AUTO) 12.1 (2.1-6.9); NEUTROPHILS % 71.3 % (38.7-80.0); PLATELET COUNT 404 x10e3/uL (140-360); RED BLOOD COUNT 3.28 x10e6/uL (3.6-5.1); RED CELL DISTRIBUTION WIDTH 14.1 % (11.7-14.4)
[2020-08-02] MEDS: INSULIN REGULAR, HUMAN 100 UNIT/1 ML 3ML VIAL SQ SCH ×3 (07:30→16:30)
[2020-08-02] MEDS: ASPIRIN 81 MG CHEW TAB PO SCH (09:00)
[2020-08-02] MEDS: RISPERIDONE 1 MG TAB PO SCH (09:00)
[2020-08-02] MEDS: DOCUSATE SODIUM 100 MG CAP PO SCH (09:00)
[2020-08-02] MEDS: ALLOPURINOL 100 MG TAB PO SCH (09:01)
[2020-08-02] MEDS: BUPROPION HCL 75 MG TAB PO SCH (09:01)
[2020-08-02] MEDS: LABETALOL HCL 100 MG TAB PO SCH ×2 (09:01→15:00)
[2020-08-02 10:49] LABS: EOSINOPHILS % (MANUAL) 4 % (0-7); LYMPHOCYTES % (MANUAL) 13 % (19-48); MONOCYTES % (MANUAL) 8 % (3.4-9.0); MYELOCYTES % (MANUAL) 3 % (0-0); NEUTROPHILS % (MANUAL) 72 % (40-74); PLATELET ESTIMATE SLIGHTLY INCREASED; PLATELET MORPHOLOGY COMMENT NORMAL; RBC MORPHOLOGY COMMENT NORMAL
[2020-08-02] MEDS ORDERED: SODIUM CHLORIDE 0.9% 1000ML 2,000 ML ONE (16:19)
== END 2020-08-02 22:35 | DRG 871 ==
LOC: ER 12:40 → ERHOLD 17:20 → MED/SURG3 18:37
PROC: 5A1D70Z Performance of Urinary Filtration, Intermittent, Less than 6 Hours Per Day (ICD-10-PCS; 2020-07-27)
PROC: 02HV33Z Insertion of Infusion Device into Superior Vena Cava, Percutaneous Approach (ICD-10-PCS; principal; 2020-07-28)
PROC: B548ZZA Ultrasonography of Superior Vena Cava, Guidance (ICD-10-PCS; 2020-07-28)
PROC: 5A1D70Z Performance of Urinary Filtration, Intermittent, Less than 6 Hours Per Day (ICD-10-PCS; 2020-07-29)
PROC: 5A1D70Z Performance of Urinary Filtration, Intermittent, Less than 6 Hours Per Day (ICD-10-PCS; 2020-07-31)
PROC: 5A1D70Z Performance of Urinary Filtration, Intermittent, Less than 6 Hours Per Day (ICD-10-PCS; 2020-08-02)
DX: A41.9 Sepsis, unspecified organism (principal); J18.9 Pneumonia, unspecified organism; N18.6 End stage renal disease; I21.A1 Myocardial infarction type 2; I13.2 Hypertensive heart and chronic kidney disease with heart failure and with stage 5 chronic kidney disease, or end stage renal disease; E87.2 Acidosis; I50.32 Chronic diastolic (congestive) heart failure; N30.00 Acute cystitis without hematuria; Z79.82 Long term (current) use of aspirin; E11.22 Type 2 diabetes mellitus with diabetic chronic kidney disease; Z99.2 Dependence on renal dialysis; R65.20 Severe sepsis without septic shock; I35.8 Other nonrheumatic aortic valve disorders; S52.125A Nondisplaced fracture of head of left radius, initial encounter for closed fracture; Z91.81 History of falling; M19.022 Primary osteoarthritis, left elbow; E66.9 Obesity, unspecified; E11.21 Type 2 diabetes mellitus with diabetic nephropathy; D63.1 Anemia in chronic kidney disease; B96.20 Unspecified Escherichia coli [E. coli] as the cause of diseases classified elsewhere; I70.0 Atherosclerosis of aorta; Z88.0 Allergy status to penicillin; Z88.2 Allergy status to sulfonamides; Z88.8 Allergy status to other drugs, medicaments and biological substances; Z68.29 Body mass index [BMI] 29.0-29.9, adult; Z20.828 Contact with and (suspected) exposure to other viral communicable diseases; Z79.4 Long term (current) use of insulin; L89.152 Pressure ulcer of sacral region, stage 2
CPT/HCPCS: 36415; 36556; 36600; 71045; 74470; 76937; 77001; 80048; 80053; 82550; 82553; 82948; 83605; 83880; 84484; 85025; 85610; 85730; 86705; 86706; 87040; 87086; 87186; 87340; 93005; 93306; 99251; 99285; C1769; J0692; J0696; J1817; J2001; J2250; J3010; J3370; J7030; J7050; Q9967; U0002